=== PATIENT | female | born 1960 | race Caucasian/White ===

== ENCOUNTER → 2016-10-28 07:27 | Day surgery (SDC) | payer BC ==
[~2016-10-28 07:27] MED LIST: Acetaminophen TAB* 325 MG PO PRN; Buffered Lidocaine 1% SYRIN* 3 ML/SYR SYRINGE INTRADERM ONE; Bupivacaine 0.5% SDV PF* 30 ML VIAL ONE; Dexamethasone IV* 4 MG/ML 1 ML (4 MG) ONE; DiMENhydriNATE IV* 50 MG/ML VIAL IV PUSH PRN; Famotidine IV* 10 MG/ML 2 ML (20 mg) ONE; HYDROmorphone* 1 MG/ML 1 ML SYR IV PRN; Ketorolac INJ* 30 MG/ML 1 ML VIAL ONE; Midazolam* 1 MG/ML 2 ML VIAL (2 MG) ONE; Ondansetron INJ* 2 MG/ML VIAL IV PRN; PROCHLORPERAZINE INJ 5 MG/ML 2 ML VIAL IV PRN; ceFAZolin 2 GM PREMIX(*) 2 GM/50 ML BAG IVPB ONE; diPHENhydraMINE IV* 50 MG/ML 1 ml VIAL (BENADRYL) ONE; fentaNYL* 50 MCG/ML 2 ML VIAL (100 MCG VIAL) ONE; oxyCODONE TAB* 5 MG TAB PO PRN
[2016-10-28 13:01] VITALS: BP 115/82
--- NOTE | 2016-10-28 17:23 | RAD ---
CPT II Codes: 6045F INDICATION: Right foot fusion 0.3 seconds of fluoroscopy time was used. Fluoroscopic services provided for referring physician. 2 spot images demonstrates fusion of the first metatarsophalangeal joint. IMPRESSION: Fluoroscopic services provided for referring physician for right foot fusion.
--- NOTE | 2016-10-29 11:13 | OP ---
DATE OF OPERATION: 10/28/16 - [facility] DATE OF : 56 ATTENDING SURGEON: Soren Oates MD [employer] WORKER: Carito Roberts PA-C ANESTHESIOLOGIST: Dr. Martinez ANESTHESA: Nerve block PRE-OP DIAGNOSIS: Forefoot clawing with claw toe of the hallux and hammertoes 2 , 3 and 4. POST-OP DIAGNOSIS: Forefoot clawing with claw toe of the hallux and hammertoes 2, 3 and 4. OPERATIVE PROCEDURE: First MTP joint fusion for hallux varus and then second, third and fourth PIP resection arthroplasties. DESCRIPTION OF PROCEDURE: The patient was taken to the operating room where we opened up through the previous dorsal medial incision directly down to the hallux joint. The threaded pin was removed from the proximal phalanx and then we prepared the joint for arthrodesis using a small power zuly. With the joint in neutral position, we drilled a oblique 4.0 mm cannulated screw across the MTP joint under compression. We then fashioned an F3 plate tip at the dorsal aspect of the first MTP joint with a combination of locking and nonlocking screws. We then sequentially made transverse elliptical incisions over the 2nd, 3rd and 4th hammertoes. Collateral ligaments were incised and then the condyles removed from each of the joints. We pinned each joint longitudinally and in neutral position with 0.062 C-wires. We then irrigated all wounds closing the medial wound with 2-0 Vicryl and 3-0 nylon, and the dorsal aspect of the second , third and fourth toes with interrupted 4-0 nylon sutures and a compression dressing applied. [id number]/[facility] #: [id number] [facility]PITALJazmyne
== END | disposition home or self-care (01) ==
LOC: OR 07:27
PROVIDERS: ATTEND Orthopaedic Surgery
DX: M20.31 Hallux varus (acquired), right foot (principal); M20.41 Other hammer toe(s) (acquired), right foot; Z88.2 Allergy status to sulfonamides; I10 Essential (primary) hypertension; K21.9 Gastro-esophageal reflux disease without esophagitis; F41.9 Anxiety disorder, unspecified; I49.3 Ventricular premature depolarization; I44.7 Left bundle-branch block, unspecified; M54.5 Low back pain; G89.29 Other chronic pain
CPT/HCPCS: 76000; C1713; C1776; J0690; J1100; J1200; J1885; J2250; J3010

== ENCOUNTER 2018-05-11 13:38 | Emergency (ER) | payer BC ==
--- OUTSIDE RECORDS SUMMARY | 2018-05-11 13:51 | XMS REPORT ---
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 Payers Type Date Identification Numbers Payment Provider Subscriber Commercial Policy Number: [id number] [facility] Ppo Sheree Wick PayID: [id number] [address] [address] [place] [address] Problems Date Description Provider Status Onset: 02/23/2013 Generalized anxiety disorder Karishma Acevedo PA Active Onset: 08/22/2011 Pain in thoracic spine Karishma Acevedo PA Active Onset: 08/22/2011 Insomnia Karishma Acevedo PA Active Onset: 08/22/2011 Benign essential hypertension Karishma Acevedo PA Active Onset: 05/30/2006 Bunion Lor Restrepo MD Active Onset: 05/30/2006 Low back pain Lor Restrepo MD Active Onset: 05/30/2006 Allergic rhinitis due to pollen Lor Restrepo MD Active Onset: 05/30/2006 Elevated blood-pressure reading Lor Restrepo MD Active without diagnosis of hypertension Onset: 05/30/2006 Osteochondropathy Lor Restrepo MD Active Onset: 12/09/2016 Gastroesophageal reflux disease Ilana Nassar NP Active Onset: 12/09/2016 Backache Ilana Nassar NP Active Onset: 12/09/2016 Mixed hyperlipidemia Ilana Nassar NP Active Onset: 12/09/2016 Body mass index 25-29 - overweight Ilana Nassar NP Active Onset: 12/09/2016 Allergic rhinitis Ilana Nassar NP Active Social History Type Date Description Comments Marital Status Single Lives With Daughter 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[employer], 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 Cigarette Use Never Smoked Cigarettes ETOH Use Occasionally consumes alcohol Smoking Patient has never smoked Allergies, Adverse Reactions, Alerts Date Description Reaction Status Severity Comments 09/26/2011 Michael-Synephrine active 02/28/2017 Sulfa Drugs rash active Medications Medication Date Status Form Strength Qnty SIG Indications Ordering Provider Hydrocodone-Ac Active Tablets 5-325mg 1 every 6 Unknown etaminophen 017 hours as needed Loratadine Active Tablets 10mg OTC 1 by J30.9 Digiovanna, 017 mouth Ilana, every day [employer] Magnesium Active Capsules 400mg 90caps 1 by R12 Digiovanning, 015 mouth Ilana, every [employer] other day K21.9 Omeprazole 05/31/[address] 20mg 90caps One Tablet R12 Digiovanna, By Mouth Ilana, [employer] Once Every Other Day K21.9 Ibuprofen 11/29/2013 Active Tablets 800mg 90tabs 1 by mouth M79.671 Digiovanna, three times Ilana, [employer] a day with food M54.89 Fluoxetine HCL 02/23/2013 Active Capsules 40mg 90caps take one F41.1 Digiovanna, capsule by Ilana, [employer] mouth every day Trazodone HCL 08/22/2011 Active Tablets 100mg 90tabs take one F41.1 Digiovanna, tablet by Ilana, [employer] mouth at bedtime Atenolol 07/23/2007 Active Tablets 50mg 180tabs take two I10 Digiovanna , tablets by Ilana, [employer] mouth every morning Cyclobenzaprine 10/17/2005 Active Tablets 10mg 50tabs Take One M54.89 Digiovanna, HCL Tablet By Ilana, [employer]CK[employer] Mouth Three Times A Day as Needed For Spasms Psyllium Active Powder 58.6% qd Unknown KP Aspirin Active Tablets 81mg [address] every day Fluconazole 12/16/2017 Hx Tablets 150mg 1tabs 1 by mouth Digiovanna, - one time JULIO Douglas 12/17/2017 Metronidazole 12/16/2017 Hx Gel 0.75% 70gm 1 Digiovanna, - applicator JULIO Douglas 12/21/2017 twice a day for 5 days Fluocinolone 10/30/2017 Hx Cream 0.01% 120gm apply 1-2 Digi[place]anna, Acetonide - gm to site JULIO Douglas 12/15/2017 as needed 1-2x/day Azithromycin 10/23/2017 Hx Tablets 250mg 6tabs 2 tablets R05 Fay, - by mouth on Mario DO 10/28/2017 day 1 then 1 tablet on days 2-5 Azithromycin 08/26/2017 Hx Tablets 250mg 6tabs 2 by mouth R05 Digiovanna, - on day 1 JULIO Douglas 08/31/2017 and 1 by mouth day 2-5 Meclizine HCL 03/13/2017 Hx Tablets 12.5m 30tabs 1 by mouth R42 Hepzibah , - g twice a day JD Grace 03/14/2017 Benzonatate 03/10/2017 Hx Capsules 200mg 30caps 1 by mouth R05 Digiovanna, - every 8 JULIO Douglas 03/20/2017 hours as needed for cough, may cause drowsiness Nitrofurantoin 02/28/2017 Hx Capsules 100mg 14caps 1 by mouth R30.0 Digiovanna, Monohyd Macro - twice a day JULIO Douglas 03/07/2017 for 7 days Azithromycin 02/07/2015 Hx Tablets 500mg 7tabs 1 by mouth 486 Fay, - every day Mario, DO 02/14/2015 [place] 50 12/17/2009 Hx Capsules 1000m 2 po qd Unknown - g 05/31/2015 Desloratadine Hx Tablets 5mg 1 tab po Unknown - daily prn 08/11/2014 nasal congestion Immunizations CPT Code Status Date Vaccine Reaction Lot # [id number] Given 05/22/2017 Afluria Or Fluvirin Flu Vac given at [facility] [place] ; Intramuscular corrected b/c box not checked for NYSIIS 42126 Given 05/15/2016 Influenza, Preservative Free 3 Years And Older 13233 Given 06/30/2013 Tdap (Adacel) Ages 7 And DONE AT [facility] Above Only [address] Given 05/16/2010 Influenza Intranasal Vaccine, Live Virus 60743 Given 07/11/2003 Tetanus And Diptheria Toxoids For Adult Use-preservative free Q2035 Refused 04/20/2018 Afluria Imunization WILL GET AT HOSP Vital Signs Date Vital Result Comment 04/20/2018 Weight 173.00 lb Heart Rate 72 /min BP Systolic 120 mmHg BP Diastolic 72 mmHg Respiratory Rate 18 /min Height 66.5 inches 5'6.50" BMI (Body Mass Index) 27.5 kg/m2 12/15/2017 Weight 169.44 lb With boot on LEFT lower leg Heart Rate 76 /min BP Systolic 116 mmHg BP Diastolic 74 mmHg Respiratory Rate 16 /min Height 66.5 inches 5'6.50" 12/15/17 MICHAEL MONTEIRO BMI (Body Mass Index) 26.9 kg/m2 10/23/2017 Body Temperature 99.2 F Weight 169.00 lb Heart Rate 88 /min BP Systolic 120 mmHg BP Diastolic 72 mmHg Respiratory Rate 18 /min Height 65 inches 5'5" O2 % BldC Oximetry 9697 % BMI (Body Mass Index) 28.1 kg/m2 08/26/2017 Body Temperature 98.5 F Weight 165.00 lb Heart Rate 74 /min BP Systolic 132 mmHg BP Diastolic 70 mmHg Respiratory Rate 16 /min Height 65 inches 5'5" O2 % BldC Oximetry 98 % on room air BMI (Body Mass Index) 27.5 kg/m2 06/13/2017 Weight 175.00 lb Heart Rate 84 /min BP Systolic 148 mmHg PT states she hasn't taken BP med today yet BP Diastolic 78 mmHg PT states she hasn't taken BP med today yet BP Systolic Recheck 136 mmHg BP Diastolic Recheck 78 mmHg Respiratory Rate 12 /min Height 65 inches 5'5" BMI (Body Mass Index) 29.1 kg/m2 04/21/2017 Body Temperature 96.8 F Weight 177.00 lb Heart Rate 72 /min BP Systolic 128 mmHg BP Diastolic 78 mmHg Respiratory Rate 16 /min Height 65 inches 5'5" BMI (Body Mass Index) 29.5 kg/m2 03/13/2017 Body Temperature 98.3 F Weight 169.00 lb Heart Rate 64 /min BP Systolic 148 mmHg BP Diastolic 80 mmHg BP Systolic Lying Down 142 mmHg BP Diastolic Lying Down 82 mmHg BP Systolic Sitting 144 mmHg BP Diastolic Sitting 84 mmHg BP Systolic Standing 142 mmHg BP Diastolic Standing 82 mmHg Respiratory Rate 18 /min Height 65 inches 5'5" O2 % BldC Oximetry 98 % BMI (Body Mass Index) 28.1 kg/m2 03/10/2017 Body Temperature 100.4 F Weight 174.00 lb Heart Rate 86 /min BP Systolic 140 mmHg BP Diastolic 84 mmHg Respiratory Rate 18 /min Height 65 inches 5'5" O2 % BldC Oximetry 97 % BMI (Body Mass Index) 29.0 kg/m2 02/28/2017 Weight 175.00 lb Heart Rate 78 /min BP Systolic 136 mmHg BP Diastolic 70 mmHg Respiratory Rate 16 /min Height 65 inches 5'5" BMI (Body Mass Index) 29.1 kg/m2 12/09/2016 Weight 174.00 lb Heart Rate 70 /min BP Systolic 120 mmHg BP Diastolic 70 mmHg Respiratory Rate 18 /min Height 65 inches 5'5" BMI (Body Mass Index) 29.0 kg/m2 05/31/2016 Weight 180.00 lb Heart Rate 68 /min BP Systolic 132 mmHg BP Diastolic 78 mmHg Respiratory Rate 18 /min Height 65 inches 5'5" BMI (Body Mass Index) 30.0 kg/m2 11/30/2015 Weight 183.00 lb Heart Rate 70 /min BP Systolic 128 mmHg BP Diastolic 74 mmHg BP Systolic Recheck 132 mmHg BP Diastolic Recheck 74 mmHg Respiratory Rate 18 /min Height 65 inches 5'5" BMI (Body Mass Index) 30.4 kg/m2 05/31/2015 Weight 180.00 lb Heart Rate 72 /min BP Systolic 130 mmHg BP Diastolic 80 mmHg Respiratory Rate 18 /min Height 65 inches 5'5" BMI (Body Mass Index) 30.0 kg/m2 02/07/2015 Body Temperature 101.3 F Weight 164.00 lb Heart Rate 88 /min BP Systolic 134 mmHg BP Diastolic 80 mmHg Respiratory Rate 18 /min Height 65.5 inches 5'5.50" O2 % BldC Oximetry 94 % BMI (Body Mass Index) 26.9 kg/m2 11/29/2014 Weight 168.00 lb Heart Rate 72 /min BP Systolic 124 mmHg BP Diastolic 74 mmHg BP Systolic Recheck 118 mmHg BP Diastolic Recheck 72 mmHg Respiratory Rate 18 /min Height 65.5 inches 5'5.50" BMI (Body Mass Index) 27.5 kg/m2 05/31/2014 Weight 169.00 lb Heart Rate 72 /min BP Systolic 110 mmHg BP Diastolic 72 mmHg Respiratory Rate 18 /min Height 65.5 inches 5'5.50" 11/29/2013 BP Systolic 108 mmHg BP Diastolic 68 mmHg 11/29/2013 Weight 166.00 lb Heart Rate 76 /min BP Systolic 140 mmHg BP Diastolic 86 mmHg Respiratory Rate 18 /min Height 65 inches 5'5" 08/23/2013 BP Systolic 128 mmHg BP Diastolic 80 mmHg 08/23/2013 Body Temperature 98.6 F Weight 163.00 lb Heart Rate 68 /min BP Systolic 144 mmHg BP Diastolic 82 mmHg Respiratory Rate 18 /min 07/26/2013 BP Systolic 140 mmHg BP Diastolic 78 mmHg 07/26/2013 Weight 162.00 lb Up #7 Heart Rate 78 /min BP Systolic 138 mmHg BP Diastolic 74 mmHg Respiratory Rate 18 /min 03/29/2013 BP Systolic 132 mmHg BP Diastolic 70 mmHg 03/29/2013 Weight 155.00 lb Heart Rate 74 /min BP Systolic 146 mmHg BP Diastolic 84 mmHg Respiratory Rate 18 /min 02/23/2013 BP Systolic 112 mmHg BP Diastolic 70 mmHg 02/23/2013 Weight 155.00 lb Heart Rate 74 /min BP Systolic 134 mmHg BP Diastolic 74 mmHg Respiratory Rate 18 /min 11/25/2012 Body Temperature 100.2 F Weight 152.00 lb Heart Rate 76 /min BP Systolic 130 mmHg BP Diastolic 70 mmHg Respiratory Rate 18 /min O2 % BldC Oximetry 98 % 09/21/2012 Weight 153.00 lb Heart Rate 74 /min BP Systolic 130 mmHg BP Diastolic 80 mmHg Respiratory Rate 18 /min 08/26/2012 BP Systolic 128 mmHg BP Diastolic 80 mmHg 08/26/2012 Body Temperature 98.9 F Weight 151.00 lb Heart Rate 72 /min BP Systolic 134 mmHg BP Diastolic 84 mmHg Respiratory Rate 18 /min Height 65 inches 5'5" 05/22/2012 Body Temperature 97.6 F Weight 152.00 lb Heart Rate 76 /min BP Systolic 132 mmHg BP Diastolic 88 mmHg Respiratory Rate 18 /min Height 65 inches 5'5" 04/06/2012 Body Temperature 99.0 F Weight 152.00 lb Heart Rate 76 /min BP Systolic 134 mmHg BP Diastolic 80 mmHg Respiratory Rate 18 /min Height 65 inches 5'5" O2 % BldC Oximetry 98 % 03/16/2012 BP Systolic 122 mmHg Sitting Up L Arm BP Diastolic 82 mmHg Sitting Up L Arm 03/16/2012 Body Temperature 98.2 F Weight 150.00 lb Heart Rate 72 /min BP Systolic 132 mmHg Lying- L Arm, 122/82 Standing In L Arm BP Diastolic 78 mmHg Lying- L Arm, 122/82 Standing In L Arm Respiratory Rate 16 /min 02/26/2012 Body Temperature 99.7 F Weight 147.00 lb Heart Rate 76 /min BP Systolic 134 mmHg BP Diastolic 78 mmHg Respiratory Rate 18 /min Height 65 inches 5'5" 02/20/12 02/20/2012 Body Temperature 98.5 F Weight 150.00 lb Heart Rate 82 /min BP Systolic 128 mmHg BP Diastolic 80 mmHg Respiratory Rate 18 /min Height 65 inches 02/20/12 09/26/2011 Body Temperature 98.8 F Weight 143.00 lb Heart Rate 74 /min BP Systolic 120 mmHg BP Diastolic 70 mmHg Respiratory Rate 20 /min Height 65 inches 5'5" 11/19/10 08/22/2011 Weight 145.00 lb Heart Rate 74 /min BP Systolic 130 mmHg BP Diastolic 70 mmHg Respiratory Rate 18 /min Height 65 inches 5'5" 11/19/10 02/18/2011 Weight 144.00 lb Heart Rate 80 /min BP Systolic 112 mmHg l arm BP Diastolic 70 mmHg l arm Respiratory Rate 16 /min Height 65 inches 5'5" 11/19/10 02/13/2011 Body Temperature 98.3 F Weight 143.00 lb Heart Rate 82 /min BP Systolic 112 mmHg l arm BP Diastolic 68 mmHg l arm Respiratory Rate 20 /min Height 65 inches 5'5" 11/19/10 O2 % BldC Oximetry 97 % Ra 12/17/2010 Weight 140.00 lb Heart Rate 68 /min BP Systolic 132 mmHg l arm BP Diastolic 62 mmHg l arm Respiratory Rate 18 /min Height 65 inches 5'5" 11/19/10 11/19/2010 Weight 137.00 lb Heart Rate 76 /min BP Systolic 112 mmHg l arm BP Diastolic 62 mmHg l arm Respiratory Rate 18 /min Height 65 inches 5'5" 10/17/2010 Weight 138.00 lb Heart Rate 72 /min BP Systolic 138 mmHg l arm BP Diastolic 86 mmHg l arm Respiratory Rate 18 /min 05/22/2010 Body Temperature 99.5 F Weight 140.00 lb Heart Rate 68 /min BP Systolic 130 mmHg BP Diastolic 84 mmHg 04/19/2010 BP Systolic 122 mmHg BP Diastolic 78 mmHg 04/19/2010 Weight 141.00 lb Heart Rate 64 /min BP Systolic 124 mmHg l arm BP Diastolic 94 mmHg l arm Respiratory Rate 18 /min Height 65.75 inches 5'5.75" 03/20/2010 Weight 141.00 lb Heart Rate 88 /min BP Systolic 124 mmHg l arm BP Diastolic 90 mmHg l arm Respiratory Rate 18 /min 01/19/2010 Body Temperature 101.5 F Weight 149.00 lb Heart Rate 76 /min BP Systolic 124 mmHg l arm BP Diastolic 78 mmHg l arm Respiratory Rate 18 /min 10/12/2009 BP Systolic 118 mmHg BP Diastolic 78 mmHg 10/12/2009 Weight 141.00 lb Heart Rate 79 /min BP Systolic 134 mmHg BP Diastolic 82 mmHg Respiratory Rate 16 /min 07/12/2009 Body Temperature 99.7 F Weight 146.00 lb Heart Rate 101 /min BP Systolic 150 mmHg BP Diastolic 86 mmHg Respiratory Rate 14 /min O2 % BldC Oximetry 99 % 04/07/2009 BP Systolic 126 mmHg BP Diastolic 78 mmHg 04/07/2009 Weight 151.00 lb Heart Rate 71 /min BP Systolic 140 mmHg BP Diastolic 90 mmHg Respiratory Rate 15 /min 03/21/2009 Body Temperature 98.9 F Weight 149.00 lb Heart Rate 76 /min BP Systolic 130 mmHg BP Diastolic 74 mmHg Respiratory Rate 15 /min 10/07/2008 BP Systolic 136 mmHg BP Diastolic 82 mmHg 10/07/2008 Weight 164.00 lb Heart Rate 74 /min BP Systolic 164 mmHg BP Diastolic 98 mmHg Respiratory Rate 14 /min 07/04/2008 Body Temperature 99.1 F Heart Rate 99 /min BP Systolic 130 mmHg BP Diastolic 80 mmHg Respiratory Rate 16 /min Height 66 inches 5'6" O2 % BldC Oximetry 99 % 04/06/2008 Weight 164.00 lb Heart Rate 80 /min BP Systolic 126 mmHg BP Diastolic 90 mmHg Respiratory Rate 17 /min Height 66 inches 5'6" 01/05/2008 Body Temperature 98.3 F Weight 163.00 lb Heart Rate 76 /min BP Systolic 134 mmHg BP Diastolic 72 mmHg Respiratory Rate 18 /min Height 66 inches 5'6" O2 % BldC Oximetry 99 % 12/24/2007 Weight 160.00 lb Heart Rate 80 /min BP Systolic 140 mmHg BP Diastolic 80 mmHg Respiratory Rate 16 /min Height 66 inches 5'6" 08/24/2007 BP Systolic 136 mmHg BP Diastolic 84 mmHg 08/24/2007 Weight 164.00 lb Heart Rate 67 /min BP Systolic 144 mmHg BP Diastolic 88 mmHg Respiratory Rate 17 /min Height 66 inches 5'6" 07/23/2007 Weight 164.00 lb Heart Rate 77 /min BP Systolic 140 mmHg BP Diastolic 80 mmHg Respiratory Rate 18 /min Height 66 inches 5'6" 05/01/2007 Body Temperature 99.4 F Weight 156.00 lb Heart Rate 87 /min BP Systolic 154 mmHg BP Diastolic 90 mmHg Respiratory Rate 18 /min Height 66 inches 5'6" O2 % BldC Oximetry 99 % 03/23/2007 Weight 156.00 lb Heart Rate 78 /min BP Systolic 120 mmHg BP Diastolic 80 mmHg Respiratory Rate 18 /min Height 66 inches 5'6" 02/12/2007 BP Systolic 158 mmHg BP Diastolic 94 mmHg 02/12/2007 Weight 153.00 lb Heart Rate 88 /min BP Systolic 160 mmHg BP Diastolic 100 mmHg Respiratory Rate 20 /min Height 66 inches 5'6" 12/09/2006 Weight 154.00 lb Heart Rate 120 /min BP Systolic 142 mmHg BP Diastolic 98 mmHg Respiratory Rate 17 /min Height 66 inches 5'6" 11/12/2006 BP Systolic 142 mmHg BP Diastolic 66 mmHg 11/12/2006 Weight 153.00 lb Heart Rate 126 /min BP Systolic 160 mmHg BP Diastolic 90 mmHg Respiratory Rate 19 /min Height 66 inches 5'6" 05/30/2006 Weight 153.19 lb Heart Rate 74 /min BP Systolic 140 mmHg BP Diastolic 60 mmHg Respiratory Rate 16 /min Height 66 inches 5'6" 03/19/2006 BP Systolic 126 mmHg BP Diastolic 82 mmHg 03/19/2006 Weight 147.00 lb Heart Rate 100 /min BP Systolic 140 mmHg BP Diastolic 90 mmHg Respiratory Rate 17 /min Height 66 inches 5'6" 01/13/2006 Weight 143.00 lb Heart Rate 78 /min BP Systolic 120 mmHg BP Diastolic 90 mmHg Respiratory Rate 16 /min Height 66 inches 5'6" 10/17/2005 BP Systolic 146 mmHg BP Diastolic 96 mmHg 10/17/2005 Weight 148.00 lb Heart Rate 72 /min BP Systolic 148 mmHg BP Diastolic 96 mmHg Respiratory Rate 15 /min Height 66 inches 5'6" 08/20/2005 Body Temperature 99.2 F Weight 144.00 lb Heart Rate 113 /min BP Systolic 140 mmHg BP Diastolic 90 mmHg Respiratory Rate 16 /min O2 % BldC Oximetry 99 % Results Test Date Test Result H/L Range Note Laboratory test 12/15/2017 TSH 3.68 uIU/mL 0.35-4.94 finding Laboratory test 12/15/2017 Urine Culture Microbiology res 1 finding <SEE NOTE> Affirm 12/15/2017 Trichomonas Negative Negative Vaginalis Gardnerella Vaginalis Positive Negative Tila Species Positive Negative Basic (BMP) 12/03/2017 Sodium 143 mmol/L 135-146 2 Potassium 4.1 mmol/L 3.5-5.2 Chloride# 102 mmol/L 97-110 3 Carbon Dioxide 31 mmol/L 24-34 Glucose 85 mg/dL 70-105 BUN 15 mg/dL 6-26 Creatinine 0.8 mg/dL 0.5-1.4 Calcium 10.5 mg/dL High 8.5-10.2 Non Stefania Egfr >60 >60 4 Stefania Egfr >60 >60 5 Anion Gap 10 mmol/L 5-15 6 Laboratory test finding 12/03/2017 TSH 7.34 uIU/mL High 0.35-4.94 Lipid Treatment 12/03/2017 Cholesterol 244 mg/dL High 50-199 Triglycerides 163 mg/dL 30-200 HDL 57 mg/dL 35-85 7 Chol/ HDL Ratio 4.3 ratio 3.7-5.6 VLDL 33 mg/dL High 2-29 LDL (Calc) 155 mg/dL High 20-99 8 Alt 16 U/L 3-42 Ast 20 U/L 8-42 Laboratory test finding 06/13/2017 TSH 3.20 uIU/mL 0.35-4.94 CBC With Auto Diff 05/29/2017 White Blood Count 5.4 K/uL 3.1-10.7 9 Red Blood Count 4.27 M/uL 3.90-5.40 9 Hemoglobin 12.7 gm/dL 11.6-15.8 9 Hematocrit 38.8 % 36.0-46.1 9 Mean Cell Volume 90.9 fl 80.9-99.0 9 Mean Corpuscular HGB 29.7 pg 25.9-32.7 9 Mean Corpuscular HGB Conc 32.7 g/dL 30.8-34.3 9 Platelet Count 266 K/uL 150-400 9 Red Cell Distri Width SD 43.4 fl 3-47 9 Red Cell Distri Width %CV 13.4 % 11.7-14.4 9 Mean Platelet Volume 10.4 fL 8.9-12.4 9 Neut% 62.8 % 40.4-72.8 9 Lymph % 26.5 % 20.0-42.0 9 [place] % 7.2 % 4.3-13.2 9 Eo% 2.9 % 0.0-6.6 9 Bas% 0.6 % 0.0-1.1 9 Neut# 3.42 K/uL 1.8-7.0 9 Lymph # 1.44 K/uL 1.0-4.0 9 [place] # 0.39 K/uL 0.3-0.9 9 Eos # 0.16 K/uL 0.0-0.5 9 Baso # 0.03 K/uL 0.0-0.1 9 Laboratory test finding 05/29/2017 Magnesium 2.0 mg/dL 1.8-2.4 9 Thyroid Stim Hormone 4.85 uIU/mL High 0.30-4.20 9 Vitamin D,25-Hydroxy 33.3 ng/mL 30.0-100.0 9, 10 CMP, Comp Metabolic Panel 05/29/2017 Glucose 90 mg/dL 74-106 9 BUN 19 mg/dL High 7-18 9 Creatinine 1.0 mg/dL 0.6-1.3 9 Glom Filtration Rate, Estimate >60 mL/min >60 9 If >60 mL/min >60 9, 11 BUN/Creat 19.0 ratio 9 Sodium 140 mmol/L 136-145 9 Potassium 4.0 mmol/L 3.5-5.1 9 Chloride 105 mmol/L 98-107 9 Carbon Dioxide 30 mmol/L 21-32 9 Anion Gap 5 mEq/L Low 8-16 9 Calcium 9.3 mg/dL 8.5-10.1 9 Total Protein 7.2 g/dL 6.4-8.2 9 Albumin 3.7 g/dL 3.4-5.0 9 Globulin 3.5 g/dL 1.9-4.3 9 Alb/Glob 1.1 ratio 9 Bilirubin,Total 0.5 mg/dL 0.2-1.0 9 Sgot/Ast 13 U/L Low 15-37 9, 12 SGPT/Alt 18 U/L 12-78 9 Alkaline Phosphatase 99 U/L 45-117 9 Lipid Panel 05/29/2017 Cholesterol 221 mg/dL High <200 9, 13 Triglycerides 149 mg/dL <150 9, 14 HDL Cholesterol 55 mg/dL >40 9, 15 LDL-Cholesterol 136 mg/dL < 100 9, 16 Laboratory test 04/21/2017 Urine Culture Microbiology res <SEE 17 finding NOTE> Laboratory test 04/21/2017 CA 125 9.8 U/ml 0.0-35.0 18 finding Basic (BMP) 03/13/2017 Sodium 142 mmol/L 135-146 19 Potassium 4.0 mmol/L 3.5-5.2 Chloride# 104 mmol/L 97-110 20 Carbon Dioxide 27 mmol/L 24-34 Glucose 99 mg/dL 70-105 BUN 16 mg/dL 6-26 Creatinine 0.7 mg/dL 0.5-1.4 Calcium 9.8 mg/dL 8.5-10.2 Non Stefania Egfr >60 >60 21 Stefania Egfr >60 >60 22 Anion Gap 11 mmol/L 7-16 23 CBC With Auto Diff 03/13/2017 WBC 7.2 K/uL 4.1-11.0 RBC 4.17 M/uL 4.00-5.40 Hemoglobin 12.2 gm/dL 12.0-16.0 Hematocrit 36.9 % 36.0-47.0 MCV 88.4 fL 80.0-97.0 MCH 29.3 pg 27.0-32.0 MCHC 33.2 g/dL 32.0-36.0 RDW 13.6 % 11.5-14.5 PLT Count 294 K/ul 140-400 Neutrophil 59.2 % 35.0-75.0 Lymphocyte 30.9 % 16.0-52.0 Monocyte 5.5 % 2.0-10.0 Eosinophil 3.9 % 0.0-5.0 Basophil 0.5 % 0.0-4.0 Abs Neutrophils 4.3 K/uL 2.1-8.0 Abs Lymphocytes 2.2 K/uL 0.8-5.5 Abs Monocytes 0.4 K/uL 0.1-1.0 Abs Eosinophils 0.3 K/uL 0.0-0.5 Abs Basophils 0.0 K/uL 0.0-0.3 Laboratory test finding 03/07/2017 Lipase 185 U/L 73-393 24 Comprehensive Metabolic Panel 03/07/2017 Glucose 114 mg/dL High 74-106 24 BUN 10 mg/dL 7-18 24 Creatinine 0.9 mg/dL 0.6-1.3 24 Glom Filtration Rate, Estimate >60 mL/min >60 24 If >60 mL/min >60 24, 25 BUN/Creat 11.1 ratio 24 Sodium 143 mmol/L 136-145 24 Potassium 4.0 mmol/L 3.5-5.1 24 Chloride 105 mmol/L 98-107 24 Carbon Dioxide 30 mmol/L 21-32 24 Anion Gap 8 mEq/L 8-16 24 Calcium 9.2 mg/dL 8.5-10.1 24 Total Protein 7.7 g/dL 6.4-8.2 24 Albumin 3.8 g/dL 3.4-5.0 24 Globulin 3.9 g/dL 1.9-4.3 24 Alb/Glob 1.0 ratio 24 Bilirubin,Total 0.5 mg/dL 0.2-1.0 24 Sgot/Ast 19 U/L 15-37 24 SGPT/Alt 26 U/L 12-78 24 Alkaline Phosphatase 125 U/L High 45-117 24 CBS W/Automated Diff 03/07/2017 White Blood Count 6.2 K/uL 3.1-10.7 24 Red Blood Count 4.10 M/uL 3.90-5.40 24 Hemoglobin 12.5 gm/dL 11.6-15.8 24 Hematocrit 37.3 % 36.0-46.1 24 Mean Cell Volume 91.0 fl 80.9-99.0 24 Mean Corpuscular HGB 30.5 pg 25.9-32.7 24 Mean Corpuscular HGB Conc 33.5 g/dL 30.8-34.3 24 Platelet Count 196 K/uL 150-400 24 Red Cell Distri Width SD 42.9 fl 3-47 24 Red Cell Distri Width %CV 13.3 % 11.7-14.4 24 Mean Platelet Volume 10.6 fL 8.9-12.4 24 Neut% 84.6 % High 40.4-72.8 24 Lymph % 4.8 % Low 20.0-42.0 24 [place] % 7.4 % 4.3-13.2 24 Eo% 2.7 % 0.0-6.6 24 Bas% 0.5 % 0.0-1.1 24 Neut# 5.28 K/uL 1.8-7.0 24 Lymph # 0.30 K/uL Low 1.0-4.0 24 [place] # 0.46 K/uL 0.3-0.9 24 Eos # 0.17 K/uL 0.0-0.5 24 Baso # 0.03 K/uL 0.0-0.1 24 Ua RFX Micro & Culture II 03/07/2017 Urine Color YELLOW Yellow 24 Urine Clarity CLEAR Clear 24 Urine Glucose - Dipstick NEGATIVE mg/dL Negative 24 Urine Bilirubin - Dipstick NEGATIVE Negative 24 Urine Ketone NEGATIVE mg/dL Negative 24 Urine Specific Miranda <=1.005 Low 1.010-1.030 24 Urine Blood NEGATIVE Negative 24 Urine PH 7.0 6.5-7.5 24 Urine Protein - Dipstick NEGATIVE mg/dL Negative 24 Urine Urobilinogen - Dipstick 0.2 E.U./dL 0.2-1.0 24 Urine Nitrite - Dipstick NEGATIVE Negative 24 Urine Leuk Esterase NEGATIVE Negative 24 Source: URINE, CLEAN CAT <SEE NOTE> 24, 26 Laboratory test 02/28/2017 Urine Culture Microbiology res <SEE 27 finding NOTE> Laboratory test 12/09/2016 Pap Smear Thin SEE NOTE 28 finding Prep Laboratory test 12/09/2016 HPV Laboratory [place]ia <SEE 29 finding NOTE> Basic (BMP) 05/31/2016 Sodium 138 mmol/L 134-142 Potassium 3.7 mmol/L 3.5-5.2 Chloride 104 mmol/L 97-109 Carbon Dioxide 30 mmol/L 24-34 Glucose 97 mg/dL 70-105 BUN 14 mg/dL 6-26 Creatinine 0.8 mg/dL 0.5-1.4 Calcium 9.6 mg/dL 8.5-10.2 Anion Gap 8 mmol/L 6-14 Non Stefania Egfr >60 >60 30 Stefania Egfr >60 >60 31 Laboratory test finding 05/31/2016 Hepatitis C Virus NONREACTIVE Nonreactive Antibody Laboratory test finding 05/31/2016 Urine Culture RL SEE NOTE 32 Rout Urine W/ Micro -RL 05/31/2016 Color YELLOW Appearance CLEAR Spec Grav Urine 1.017 (1.003-1.030) PH Urine 5.5 (5.0-7.5) Leuk Esterase NEGATIVE (Neg) Nitrite Urine NEGATIVE (Neg) Protein Urine NEGATIVE (Neg) Glucose Urine NEGATIVE (Neg) Ketone Urine NEGATIVE (Neg) Urobilinogen 0.2 mg/dL (0-1.0) Bilirubin Urine NEGATIVE (Neg) Blood/HGB Urine NEGATIVE (Neg) Epithelial Cells NEGATIVE [HPF] (Neg) Hyaline Casts 0.0 [LPF] (0-5) Bacteria NEGATIVE [HPF] (Neg) Urine WBC 2.4 [HPF] (0-8) Urine RBC 0.5 [HPF] (0-3) 33 Estimated GFR 06/01/2015 Creatinine 0.8 mg/dL 0.6-1.3 Glom Filtration Rate, Estimate >60 mL/min >60 If >60 mL/min >60 34 Lipid Panel 06/01/2015 Cholesterol 200 mg/dL <200 35 Triglycerides 142 mg/dL <150 36 HDL Cholesterol 46 mg/dL >40 37 LDL-Cholesterol 126 mg/dL < 100 38 BMP (Basic) 06/01/2015 Glucose 94 mg/dL 74-106 BUN 17 mg/dL 7-18 Creatinine 0.8 mg/dL 0.6-1.3 Glom Filtration Rate, Estimate >60 mL/min >60 If >60 mL/min >60 39 BUN/Creat 21.2 ratio Sodium 142 mmol/L 136-145 Potassium 3.5 mmol/L 3.5-5.1 Chloride 104 mmol/L 98-107 Carbon Dioxide 35 mmol/L High 21-32 Anion Gap 3 mEq/L Low 8-16 Calcium 9.6 mg/dL 8.5-10.1 CBC With Auto Diff 06/01/2015 White Blood Count 5.1 K/uL 3.1-10.7 Red Blood Count 4.13 M/uL 3.90-5.40 Hemoglobin 12.6 gm/dL 11.6-15.8 Hematocrit 38.3 % 36.0-46.1 Mean Cell Volume 92.7 fl 80.9-99.0 Mean Corpuscular HGB 30.5 pg 25.9-32.7 Mean Corpuscular HGB Conc 32.9 g/dL 30.8-34.3 Platelet Count 259 K/uL 155-360 Red Cell Distri Width SD 44.1 fl 3-47 Red Cell Distri Width %CV 13.4 % 11.7-14.4 Mean Platelet Volume 11.2 fL 8.9-12.4 Neut% 53.8 % 40.4-72.8 Lymph % 33.1 % 17.0-46.1 [place] % 9.1 % 4.3-13.2 Eo% 3.6 % 0.0-6.6 Bas% 0.4 % 0.0-1.1 Neut# 2.73 K/uL 1.0-7.0 Lymph # 1.68 K/uL Low 1.8-7.0 [place] # 0.46 K/uL 0.3-0.9 Eos # 0.18 K/uL 0.0-0.5 Baso # 0.02 K/uL 0.0-0.1 Rout Urine W/ Micro -RL 05/31/2015 Color YELLOW Appearance CLOUDY Spec Grav Urine 1.028 (1.003-1.030) PH Urine 5.5 (5.0-7.5) Leuk Esterase 1+ (Neg) Nitrite Urine NEGATIVE (Neg) Protein Urine NEGATIVE (Neg) Glucose Urine NEGATIVE (Neg) Ketone Urine NEGATIVE (Neg) Urobilinogen 0.2 mg/dL (0-1.0) Bilirubin Urine NEGATIVE (Neg) Blood/HGB Urine NEGATIVE (Neg) Urine WBC * 6-10 [HPF] (0-5) Urine RBC * 3-5 [HPF] (0-2) Epithelial Cells 2+ [HPF] Bacteria 2+ [HPF] Mucus 1+ [HPF] 40 Laboratory test finding 11/29/2013 % Baso. 0.7 % 0.0-2.0 % Eos. 1.6 % 0.0-4.0 % Lymph 18 % Low 20-44 % [place] 5.6 % 2.0-10.0 % Cristian 74 % High 50-70 Absolute Baso. 0.1 K/ul 0.0-0.3 Absolute Eos. 0.1 K/ul 0.0-0.5 Absolute Lymph. 1.4 K/ul 0.8-4.8 Absolute [place]. 0.4 K/ul 0.1-1.0 Absolute Cristian. 5.55 K/ul 2.05-7.63 BUN 15.0 mg/dL 7.0-18.0 BUN/Creat Ratio 21.4 ratio High 12.0-20.0 Calcium 10.1 mg/dL 8.7-10.5 Chloride 102.0 mmol/L 98.0-107.0 Co2 31.0 mmol/L High 22.0-30.0 Creatinine-Serum 0.7 mg/dL 0.7-1.2 Glucose 71.0 mg/dL Low 75.0-110.0 HCT 37.9 % 37.0-51.0 HGB 12.5 Gm/dl 12.0-16.0 MCH 30.7 pg 26.0-32.0 MCHC 33.0 g/dL 31.0-36.0 MCV 93.0 Fl 80.0-97.0 MPV 7.9 fL 6.0-10.0 PLT 259 K/ul 140-440 Potasium 3.9 mmol/L 3.6-5.0 RBC 4.1 M/ul Low 4.2-6.3 RDW 12.1 % 11.5-14.5 Sodium 140.0 mmil/L 137.0-145.0 WBC 7.5 K/ul 4.1-10.9 eGFR 92.3 Laboratory test finding 08/23/2013 Tila species Positive High [Negative ] Culture Urine See Note 41 Gardnerella vaginalis Positive High [Negative] Trichomonas vaginalis Negative [Negative] Laboratory test finding 02/23/2013 % Baso. 0.9 % 0.0-2.0 % Eos. 1.0 % 0.0-4.0 % Lymph 23 % 20-44 % [place] 7.6 % 2.0-10.0 % Cristian 68 % 50-70 Absolute Baso. 0.1 K/ul 0.0-0.3 Absolute Eos. 0.1 K/ul 0.0-0.5 Absolute Lymph. 1.3 K/ul 0.8-4.8 Absolute [place]. 0.4 K/ul 0.1-1.0 Absolute Cristian. 3.98 K/ul 2.05-7.63 BUN 13.0 mg/dL 7.0-18.0 BUN/Creat Ratio 16.3 ratio 12.0-20.0 Calcium 10.1 mg/dL 8.7-10.5 Chloride 102.0 mmol/L 98.0-107.0 Co2 29.0 mmol/L 22.0-30.0 Creatinine-Serum 0.8 mg/dL 0.7-1.2 Glucose 88.0 mg/dL 75.0-110.0 HCT 37.5 % 37.0-51.0 HGB 12.4 Gm/dl 12.0-16.0 MCH 30.7 pg 26.0-32.0 MCHC 33.0 g/dL 31.0-36.0 MCV 93.0 Fl 80.0-97.0 MPV 9.0 fL 6.0-10.0 PLT 248 K/ul 140-440 [place] 3.7 mmol/L 3.6-5.0 RBC 4.0 M/ul Low 4.2-6.3 RDW 12.0 % 11.5-14.5 Sodium 142.0 mmil/L 137.0-145.0 TSH 3.05 uIU/ml 0.50-6.00 WBC 5.9 K/ul 4.1-10.9 eGFR 79.4 Laboratory test finding 11/26/2012 Tila Species See Note 42 Gardnerella Vaginalis See Note 43 Trichomonas Vaginalis See Note 44 Laboratory test finding 06/22/2012 Endometrial Curettage See Note 45 Laboratory test finding 05/22/2012 Tila Species See Note 46 Gardnerella Vaginalis See Note 47 Genital Culture See Note 48 Gram Stain See Note 49 Trichomonas Vaginalis See Note 50 Laboratory test finding 09/26/2011 A/G Ratio 1.4 1.0-2.2 Absolute Basophils 0.048 K/ul 0.0-0.3 Absolute Eosinophils 0.056 K/ul 0.0-0.5 Absolute Lymphocytes 1.78 K/ul 0.8-4.8 Absolute Monocytes 0.298 K/ul 0.1-1.0 Absolute Neutrophils 4.00 K/ul 2.05-7.63 Albumin 3.9 g/dL 3.5-5.0 Alkaline Phosphatase 54 U/L 30-126 Alt 22 U/L 9-52 Ast 23 U/L 14-36 BUN 16 mg/dL 7-18 BUN/CR Ratio 24.7 Ratio High 12-20 Basophil 0.8 % 0-2 Calcium 10.0 mg/dL 8.7-10.5 Carbon Dioxide 32 mmol/L High 22-30 Chloride 95 mmol/L Low 98-107 Creatinine, Serum 0.6 mg/dL Low 0.7-1.2 Eosinophil 0.9 % 0-4 Globulin 2.9 g/dL 2.7-4.3 Glucose 72 mg/dL 65-105 Hematocrit 39.3 % 37.0-51.0 Hemoglobin 12.5 GM/dl 12.0-16.0 Lymphocytes 28.8 % 20-44 MCH 29.6 pg 26.0-32.0 MCHC 31.9 g/dL 31.0-36.0 MCV 93 FL 80-97 Monocytes 4.8 % 2-10.0 Neutrophils 64.7 % 50-70 Platelet Count 263 K/ul 140-440 Potassium 4.6 mmol/L 3.6-5.0 RBC 4.23 M/ul 4.2-6.3 RDW 12.0 % 11.5-14.5 Sodium 138 mmol/L 137-145 Total Bilirubin 0.8 mg/dL 0.2-1.3 Total Protein 6.8 g/dL 6.3-8.2 WBC 6.2 K/ul 4.1-10.9 Laboratory test finding 08/22/2011 Anion Gap 13 mmol/L 10-20 BUN 22 mg/dL High 7-18 BUN/CR Ratio 31.5 Ratio High 12-20 Calcium 9.4 mg/dL 8.7-10.5 Carbon Dioxide 30 mmol/L 22-30 Chloride 98 mmol/L 98-107 Creatinine, Serum 0.7 mg/dL 0.7-1.2 Glucose 89 mg/dL 65-105 Potassium 3.9 mmol/L 3.6-5.0 Sodium 138 mmol/L 137-145 Laboratory test finding 08/22/2011 Tila Species See Note 51 Gardnerella Vaginalis See Note 52 Genital Culture See Note 53 Gram Stain See Note 54 Trichomonas Vaginalis See Note 55 Laboratory test finding 02/18/2011 Tila Species See Note 56 Gardnerella Vaginalis See Note 57 Genital Culture See Note 58 Gram Stain See Note 59 Trichomonas Vaginalis See Note 60 Laboratory test finding 12/17/2010 Tila Species See Note 61 Gardnerella Vaginalis See Note 62 Trichomonas Vaginalis See Note 63 Laboratory test finding 10/17/2010 Anion Gap 10 mEq/L 8-16 BUN 13 mg/dL 5-23 BUN/Creat 18.5 Bas% 0.4 % 0.0-1.1 Baso # 0.03 K/uL 0.0-0.1 Calcium 9.8 mg/dL 8.5-10.1 Carbon Dioxide 32 mEq/L 21-32 Chloride 101 mEq/L 98-107 Creatinine 0.7 mg/dL 0.5-1.4 Eo% 0.9 % 0.0-6.6 Eos # 0.06 K/uL 0.0-0.5 Estradiol,Serum < 20 pg/mL 64 FSH 111.5 mIU/mL 65 Glom Filtration Rate, Estimate >60 mL/min >60 Glucose 86 mg/dL 76-115 Hematocrit 36.6 % 36.0-46.1 Hemoglobin 11.7 gm/dL 11.6-15.8 If >60 mL/min >60 66 Luteinizing Hormone 50.9 mIU/mL 67 Lymph # 1.98 K/uL 0.8-3.4 Lymph % 28.8 % 17.0-46.1 Mean Cell Volume 93.4 fl 80.9-99.0 Mean Corpuscular HGB 29.8 pg 25.9-32.7 Mean Corpuscular HGB Conc 32.0 g/dL 30.8-34.3 Mean Platelet Volume 12.3 fL 8.9-12.4 [place] # 0.43 K/uL 0.3-0.9 [place] % 6.3 % 4.3-13.2 Neut# 4.37 K/uL 1.0-7.0 Neut% 63.6 % 40.4-72.8 Platelet Count 238 K/uL 155-360 Potassium 4.2 mEq/L 3.5-5.1 Red Blood Count 3.92 M/uL 3.90-5.40 Red Cell Distri Width %CV 12.7 % 11.7-14.4 Red Cell Distri Width SD 41.9 fl 3-47 Sodium 139 mEq/L 136-145 Thyroid Stim Hormone 4.40 uIU/mL 0.49-4.67 68 White Blood Count 6.9 K/uL 3.1-10.7 Laboratory test finding 05/22/2010 Culture Urine See Note 69 Laboratory test finding 04/19/2010 Tila Species See Note 70 Cytology Pap See Note 71 Gardnerella Vaginalis See Note 72 Trichomonas Vaginalis See Note 73 Laboratory test finding 03/20/2010 Tila Species See Note 74 Culture Urine See Note 75 Gardnerella Vaginalis See Note 76 Trichomonas Vaginalis See Note 77 Laboratory test finding 10/12/2009 Anion Gap 13 mmol/L 10-20 78 BUN 16 mg/dL 7-18 78 BUN/CR Ratio 24.7 Ratio High 12-20 78 Calcium 9.5 mg/dL 8.7-10.5 78 Carbon Dioxide 32 mmol/L High 22-30 78 Chloride 98 mmol/L 98-107 78 Creatinine, Serum 0.6 mg/dL Low 0.7-1.2 78 Glucose 95 mg/dL 65-105 78 Potassium 4.1 mmol/L 3.6-5.0 78 Sodium 139 mmol/L 137-145 78 Laboratory test finding 04/07/2009 Cytology Pap See Note 79 LDL Cholesterol Profile 07/08/2008 Cholesterol 141 mg/dL 120-200 HDL Cholesterol 40 mg/dL 32-96 LDL-Cholesterol 85 mg/dL 62-185 Triglycerides 79 mg/dL 0-210 Laboratory test finding 07/08/2008 Anion Gap 8 mEq/L 8-16 BUN 17 mg/dL 5-23 BUN/Creat 28.3 Calcium 8.6 mg/dL 8.5-10.1 Carbon Dioxide 29 mEq/L 21-32 Chloride 105 mEq/L 98-107 Creatinine 0.6 mg/dL 0.5-1.4 Glom Filtration Rate, Estimate >60 mL/min >60 Glucose 96 mg/dL 76-115 If >60 mL/min >60 80 Potassium 3.9 mEq/L 3.5-5.1 Sodium 138 mEq/L 136-145 Laboratory test finding 06/27/2008 Anion Gap 12 mEq/L 8-16 81 BUN 8 mg/dL 5-23 81 BUN/Creat 16.0 81 Band% 4 % 0-8 81 CBS W/Automated Diff Canceled By Lab 81, 82 CK 144 U/L 26-190 81 Calcium 9.0 mg/dL 8.5-10.1 81 Carbon Dioxide 29 mEq/L 21-32 81 Chloride 103 mEq/L 98-107 81 Creatinine 0.5 mg/dL 0.5-1.4 81 Eosinophil% 1 % 0-5 81 Glom Filtration Rate, Estimate >60 mL/min >60 81 Glucose 113 mg/dL 76-115 81 Hematocrit 37.0 % 36.0-46.1 81 Hemoglobin 12.4 gm/dL 11.6-15.8 81 If >60 mL/min >60 81, 83 Lymph% 8 % Low 17-56 81 Mean Cell Volume 91.1 fl 80.9-99.0 81 Mean Corpuscular HGB 30.5 pg 25.9-32.7 81 Mean Corpuscular HGB Conc 33.5 g/dL 30.8-34.3 81 Mean Platelet Volume 10.9 fL 8.9-12.4 81 Monocyte% 1 % 0-10 81 Neutrophils% 86 % High 33-73 81 Platelet Count 281 K/uL 155-360 81 Platelet Estimate Normal 81 Potassium 3.6 mEq/L 3.5-5.1 81 RBC Morphology Normal 81 Red Blood Count 4.06 M/uL 3.90-5.40 81 Red Cell Distri Width %CV 12.7 % 11.7-14.4 81 Sodium 140 mEq/L 136-145 81 Total Cells Counted 100 #CELLS 81 Troponin-I 2.2 ng/mL High 0.0-0.6 81, 84 White Blood Count 11.6 K/uL High 3.1-10.7 81 Laboratory test 06/27/2008 Troponin-I 8.6 ng/mL High 0.0-0.6 85, 86 finding Laboratory test 04/06/2008 Cytology Pap See Note 87 finding Laboratory test 12/24/2007 Culture Throat Normal Throat FL 88 finding <See Note> Laboratory test 12/24/2007 Rapid Strep Test Negative finding Laboratory test 03/24/2007 Cytology Pap See Note 89 finding GC / Chlamydia See Note 90 Laboratory test finding 02/12/2007 Culture Urine <see comment> 91 Laboratory test finding 11/12/2006 Culture Urine <see comment> 92 Laboratory test finding 01/13/2006 Cytology Pap See Note 93 Laboratory test finding 01/13/2006 Absolute Basophils 0.0 K/ul 0.0-0.3 94 Absolute Eosinophils 0.1 K/ul 0.0-0.5 94 Absolute Lymphocytes 1.5 K/ul 0.8-4.8 94 Absolute Monocytes 0.3 K/ul 0.1-1.0 94 Absolute Neutrophils 3.7 K/ul 2.05-7.63 94 Anion Gap 11 mmol/L 10-20 94 BUN 18 mg/dL 7-18 94 BUN/CR Ratio 26.7 Ratio High 12-20 94 Basophil 0.3 % 0-2 94 Calcium 9.1 mg/dL 8.7-10.5 94 Carbon Dioxide 29 mmol/L 22-30 94 Chloride 106 mmol/L 98-107 94 Creatinine, Serum 0.7 mg/dL 0.7-1.2 94 Eosinophil 2.3 % 0-4 94 Glucose 87 mg/dL 65-105 94 Hematocrit 38.1 % 37.0-51.0 94 Hemoglobin 13.2 GM/dl 12.0-16.0 94 Lymphocytes 26.7 % 20-44 94 MCH 30.9 pg 26.0-32.0 94 MCHC 34.7 g/dL 31.0-36.0 94 MCV 89 FL 80-97 94 Monocytes 5.0 % 2-10.0 94 Neutrophils 65.7 % 50-70 94 Platelet Count 261 K/ul 140-440 94 Potassium 3.8 mmol/L 3.6-5.0 94 RBC 4.28 M/ul 4.2-6.3 94 RDW 12.3 % 11.5-14.5 94 Sodium 142 mmol/L 137-145 94 WBC 5.6 K/ul 4.1-10.9 94 Lipid Panel 01/13/2006 Chol/HDL Ratio 3.17 94, 95 Cholesterol 182 mg/dL 50-199 94 HDL Cholesterol 57 mg/dL 29-86 94 LDL 112 mg/dL 20-129 94 Triglycerides 61 mg/dL 30-249 94 VLDL Cholesterol 12 mg/dL 94 1 Microbiology results SOURCE Clean Catch Midstream FINAL RESULT No growth 2 Updated reference range on new analyzer 3 Updated reference range on new analyzer 4 Concerning GFR Guidelines: Normal function or mild renal disease, if clinically at risk: >/=60 mL/min Moderately decreased: 30-59 Severely decreased: 15-29 Renal failure: <15 Glomerular Filtration Rate (GFR) is estimated based on the MDRD equation, which assumes a steady state for creatinine as recommended by the National Kidney Disease Education Program in conjunction with the National Institutes of Health and the National Kidney Foundation. Clinical conditions in which it may be necessary to measure GFR by using clearance methods include extremes of age and body size, severe malnutrition or obesity, diseases of skeletal muscle, paraplegia or quadriplegia, vegetarian diet, rapidly changing kidney function, and calculation of the dose of potentially toxic drugs that are excreted by the kidneys. 5 Concerning GFR Guidelines for Americans: Normal function or mild renal disease, if clinically at risk: >/=60 mL/min Moderately decreased: 30-59 Severely decreased: 15-29 Renal failure: <15 6 Updated Reference Range 7 Per NCEP ATP III Guidelines: Results lower than 40 mg/dL are suggestive of increased risk for coronary artery disease. Results > or=to 60 mg/dL are considered a negative risk factor. 8 Per NCEP ATP III Guidelines: Normal Population <130 Patients with medical conditions: CHD/DM Optimal: <100 Borderline high: 130-159 High: 160-189 Very high: >189 9 K21.9,F41.1,E78.2,I10 5.4% 10 yr risk 10 Vitamin D deficiency has been defined by the [place] [employer] and an Endocrine Society practice guideline as a level of serum 25-OH vitamin D less than 20 ng/mL (1,2). The Endocrine Society went on to further define vitamin D insufficiency as a level between 21 and 29 ng/mL (2). 1. IOM ([place] [employer]). 2010. Dietary reference intakes for calcium and D. [place]: The National Academies Press. 2. Ary MF, Tho OLVERA, Juan BROOKE, et al. Evaluation, treatment, and prevention of vitamin D deficiency: an Endocrine Society clinical practice guideline. JCEM. 2010; 96(7):1911-30. Performed at: RN - [facility] [address] [id number] Car Rider: Mehreen Jalloh MD, Phone: [phone] 11 Note: Persistent reduction for 3 months or more in an eGFR <60 mL/min/1.73 m2 defines CKD. Patients with eGFR values >/=60 mL/min/1.73 m2 may also have CKD if evidence of persistent proteinuria is present. The original MDRD equation for estimated GFR is not valid for patients less than 18 years of age. Additional information may be found at www.kdoqi.org. 12 Values below the stated reference ranges of AST and ALT can be seen in normal populations. Clinical correlation is suggested. 13 Reference Guidelines*: Desirable: ........... < 200 mg/dL Borderline High: ..... 200-239 mg/dL High: ................ >=240 mg/dL * The National Cholesterol Education Program (NCEP) 14 Reference Guidelines*: Normal: ............. < 150 mg/dL Borderline High: .... 150-199 mg/dL High: ............... 200-499 mg/dL Very High: .......... > 500 mg/dL * Source: National Cholesterol Education Program (NCEP) 15 Reference Guidelines*: Low HDL: ..... < 40 mg/dL Normal: ..... 40-60 mg/dL Desirable: ... > 60 mg/dL *The National Cholesterol Education Program(NCEP) 16 Reference Guidelines*: Optimal:........... <100 mg/dL Near Optimal....... 100-129 mg/dL Borderline High.... 130-159 mg/dL High............... 160-189 mg/dL Very High.......... >=190 mg/dL * Source: National Cholesterol Education Program (NCEP) 17 Microbiology results SOURCE Clean Catch Midstream FINAL RESULT <10,000 CFU/ML Urogenital zofia consistent with contamination. Request fresh specimen if indicated. 18 Beginning 10/06/06 CA125 values assayed at [facility] laboratories uses an EIA methodology manufactured by [employer] for use on the DXI analyzer. Values obtained with different assay methods or kits can not be used interchangeably. Serum CA125 measurement is not an absolute test for malignancy. The CA125 value should be used in conjunction with information available from clinical evaluation and other diagnostic procedures. 19 Updated reference range on new analyzer 20 Updated reference range on new analyzer 21 Concerning GFR Guidelines: Normal function or mild renal disease, if clinically at risk: >/=60 mL/min Moderately decreased: 30-59 Severely decreased: 15-29 Renal failure: <15 Glomerular Filtration Rate (GFR) is estimated based on the MDRD equation, which assumes a steady state for creatinine as recommended by the National Kidney Disease Education Program in conjunction with the National Institutes of Health and the National Kidney Foundation. Clinical conditions in which it may be necessary to measure GFR by using clearance methods include extremes of age and body size, severe malnutrition or obesity, diseases of skeletal muscle, paraplegia or quadriplegia, vegetarian diet, rapidly changing kidney function, and calculation of the dose of potentially toxic drugs that are excreted by the kidneys. 22 Concerning GFR Guidelines for Americans: Normal function or mild renal disease, if clinically at risk: >/=60 mL/min Moderately decreased: 30-59 Severely decreased: 15-29 Renal failure: <15 23 Updated reference range on new analyzer 24 FEVER, CHILLS, LOW ABD PAIN 25 Note: Persistent reduction for 3 months or more in an eGFR <60 mL/min/1.73 m2 defines CKD. Patients with eGFR values >/=60 mL/min/1.73 m2 may also have CKD if evidence of persistent proteinuria is present. The original MDRD equation for estimated GFR is not valid for patients less than 18 years of age. Additional information may be found at www.kdoqi.org. 26 URINE, CLEAN CATCH 27 Microbiology results SOURCE Clean Catch Midstream COLONY COUNT 50,000 PRELIMINARY RESULT Gram Negative [place]. ID & Sensitivity to Follow. FINAL RESULT Escherichia coli (Isolate 1) Sensitivity Analysis Isolate 1 --------- AMIKACIN <=16 S AMPICILLIN <=8 S AMPICILLIN/SULBACTAM <=8/4 S AZTREONAM <=4 S CEFAZOLIN <=2 S CEFEPIME <=8 S CEFTAZIDIME <=1 S CEFTRIAXONE <=1 S CIPROFLOXACIN <=1 S ERTAPENEM <=0.5 S GENTAMYCIN <=2 S IMIPENEM <=1 S LEVOFLOXACIN <=2 S NITROFURANTOIN <=32 S PIPERACILLIN/TAZOBACTAM <=16 S TETRACYCLINE <=4 S TOBRAMYCIN <=4 S TRIMETHOPRIM/SULFAMETHOXAZ <=2/38 S S=Sensitive;I=Indeterminate;R=Resistant 28 [facility]. [address] [place] [address] CYTOLOGY REPORT Source of Specimen(s): Thin Prep Endocervical Pap Smear - One Vial Date of Last Menstrual Period: 11/20 Menstrual History: Post-menopausal Other Clinical Conditions: Last Pap Smear: 2009 normal HPV ASSAY REQUESTED Specimen Adequacy SATISFACTORY FOR EVALUATION PRESENCE OF ENDOCERVICAL/TRANSFORMATION ZONE COMPONENT General Categorization NEGATIVE FOR INTRAEPITHELIAL LESION OR MALIGNANCY Interpretation NEGATIVE FOR INTRAEPITHELIAL LESION OR MALIGNANCY Comment HPV testing will be performed and a separate report will be issued. Reported: 12/11/2016 07:26 Electronically Signed Out By Monserrat SARAVIA rzd ICD9 Code: Z01.419 Unless otherwise specified, testing performed by [facility] [address] [place] [id number] 29 [facility] [place] [address] [address] Amplified Molecular High Risk HPV Test Patient Name:SHEREE WICK Patient :1960 Ordering Physician:ILANA NASSAR BUCKLE [employer]AP PUNCHER Accession Number [id number] Specimen(s) Received A: High Risk HPV Thin Prep Endocervical Pap Smear - One Vial Other Case Numbers: [id number] Diagnosis RISK GROUPS RESULTS High Risk NEGATIVE Tested for HPV Types (16, 18, 31, 33, 35, 39, 45, 51, 52, 56, 58, 59, 66, 68) Reported: 12/12/2016 10:24 Electronically Signed Out By Elissa Ansari [facility] Stacey Bullard 30 Concerning GFR Guidelines: Normal function or mild renal disease, if clinically at risk: >/=60 mL/min Moderately decreased: 30-59 Severely decreased: 15-29 Renal failure: <15 Glomerular Filtration Rate (GFR) is estimated based on the MDRD equation, which assumes a steady state for creatinine as recommended by the National Kidney Disease Education Program in conjunction with the National Institutes of Health and the National Kidney Foundation. Clinical conditions in which it may be necessary to measure GFR by using clearance methods include extremes of age and body size, severe malnutrition or obesity, diseases of skeletal muscle, paraplegia or quadriplegia, vegetarian diet, rapidly changing kidney function, and calculation of the dose of potentially toxic drugs that are excreted by the kidneys. 31 Concerning GFR Guidelines for Americans: Normal function or mild renal disease, if clinically at risk: >/=60 mL/min Moderately decreased: 30-59 Severely decreased: 15-29 Renal failure: <15 32 SPECIMEN DESCRIPTION URINE, COLLECTION METHOD NOT SPECIFIED CULTURE RESULTS NO GROWTH REPORT STATUS FINAL 2016 Unless otherwise specified, testing performed by [facility] [address] [place] [id number] 33 Unless otherwise specified, testing performed by [facility] [address] [place] [id number] 34 Note: Persistent reduction for 3 months or more in an eGFR <60 mL/min/1.73 m2 defines CKD. Patients with eGFR values >/=60 mL/min/1.73 m2 may also have CKD if evidence of persistent proteinuria is present. The original MDRD equation for estimated GFR is not valid for patients less than 18 years of age. Additional information may be found at www.kdoqi.org. 35 Reference Guidelines*: Desirable: ........... < 200 mg/dL Borderline High: ..... 200-239 mg/dL High: ................ >=240 mg/dL * The National Cholesterol Education Program (NCEP) 36 Reference Guidelines*: Normal: ............. < 150 mg/dL Borderline High: .... 150-199 mg/dL High: ............... 200-499 mg/dL Very High: .......... > 500 mg/dL * Source: National Cholesterol Education Program (NCEP) 37 Reference Guidelines*: Low HDL: ..... < 40 mg/dL Normal: ..... 40-60 mg/dL Desirable: ... > 60 mg/dL *The National Cholesterol Education Program(NCEP) 38 Reference Guidelines*: Optimal:........... <100 mg/dL Near Optimal....... 100-129 mg/dL Borderline High.... 130-159 mg/dL High............... 160-189 mg/dL Very High.......... >=190 mg/dL * Source: National Cholesterol Education Program (NCEP) 39 Note: Persistent reduction for 3 months or more in an eGFR <60 mL/min/1.73 m2 defines CKD. Patients with eGFR values >/=60 mL/min/1.73 m2 may also have CKD if evidence of persistent proteinuria is present. The original MDRD equation for estimated GFR is not valid for patients less than 18 years of age. Additional information may be found at www.[email or web address]. 40 Unless otherwise specified, testing performed by [facility] [address] [place] [address] 41 COLONY COUNT ! 30,000-40,000 CFU/ml Organism 1 ! URETHRAL ZOFIA 42 POSITIVE FOR TILA SPECIES Testing Performed by: [facility] [place] [address] 43 POSITIVE FOR GARDNERELLA VAGINALIS 44 NEGATIVE FOR TRICHOMONAS VAGINALIS 45 OPERATION/PROCEDURE Hysteroscopy, D+C, endometrial oblation with Novasure DIAGNOSIS: "ENDOMETRIAL CURETTINGS": DISORDERED PROLIFERATIVE ENDOMETRIUM. ADRIANNA/abhijit GROSS "ENDOMETRIAL CURETTINGS" . The specimen is received in an appropriately labeled container. This contains 1.2 mL of pink tissue admixed with mucus. Filtered and submitted in toto within a single cassette. /abhijit MICROSCOPIC Sections reveal cytologically bland, pseudostratified, proliferative, mitotically active epithelium having a slightly increased [id number] ratio. The glands show shallow budding focally, but overall are tubular, narrow caliber, within abundant stroma. PRE OPERATIVE DIAGNOSIS Menorrhagia REVIEW CODE CODE: I ----- ROMINA Rosales MD 06/23/12 [id number] ----- 46 NEGATIVE FOR TILA SPECIES Testing Performed by: [facility] [place] [address] 47 POSITIVE FOR GARDNERELLA VAGINALIS 48 Organism 1 ! GARDNERELLA VAGINALIS QUANTITY ! MANY 49 GRAM STAIN ! GRAM STAIN SUSPICIOUS FOR BACTERIAL VAGINOSIS ! MANY GRAM VARIABLE COCCOBACILLI ! VERY FEW GR POS. BACILLI SUGGESTIVE OF LACTOBACILLUS ! SP. ! FEW GRAM NEGATIVE BACILLI 50 NEGATIVE FOR TRICHOMONAS VAGINALIS 51 NEGATIVE FOR TILA SPECIES Testing Performed by: [place] [address] 52 POSITIVE FOR GARDNERELLA VAGINALIS 53 GENITAL ZOFIA 54 GRAM STAIN ! GRAM STAIN SUSPICIOUS FOR BACTERIAL VAGINOSIS ! MODERATE GRAM VARIABLE COCCOBACILLI 55 NEGATIVE FOR TRICHOMONAS VAGINALIS 56 NEGATIVE FOR TILA SPECIES Testing Performed by: [place] [address] 57 POSITIVE FOR GARDNERELLA VAGINALIS 58 Organism 1 ! ESCHERICHIA COLI QUANTITY ! MANY ESCHERICHIA COLI Target Route Dose M.I.C. RX AB COST ------ ----- -------- ------ -- ------ TRIMETHOPRIM/SULFAMETHOXAZOLE <=20 S AMPICILLIN <=2 S CEFAZOLIN <=4 S AMPICILLIN/SULBACTAM <=2 S CIPROFLOXACIN <=0.25 S CEFTAZIDIME <=1 S CEFTRIAXONE <=1 S CEFEPIME <=1 S LEVOFLOXACIN <=0.12 S IMIPENEM <=1 S GENTAMICIN <=1 S TOBRAMYCIN <=1 S CEFOXITIN <=4 S 59 GRAM STAIN ! GRAM STAIN INDETERMINANT FOR BACTERIAL VAGINOSIS ! VERY FEW GR POS. BACILLI SUGGESTIVE OF LACTOBACILLUS ! SP. ! FEW GRAM NEGATIVE COCCOBACILLI ! FEW GRAM NEGATIVE BACILLI 60 NEGATIVE FOR TRICHOMONAS VAGINALIS 61 NEGATIVE FOR TILA SPECIES Testing Performed by: [place] [address] 62 POSITIVE FOR GARDNERELLA VAGINALIS 63 NEGATIVE FOR TRICHOMONAS VAGINALIS 64 Result confirmed by repeat analysis. NORMALLY MENSTRUATING FEMALES: Follicular Phase:...............39-189 pg/mL Mid-Cycle Peak:.................94-508 pg/ mL Luteal Phase:...................48-309 pg/mL POSTMENOPAUSAL FEMALE:..............0-41 pg/mL 65 NORMALLY MENSTRUATING FEMALES: Follicular Phase:...............4-13 mIU/mL Mid-Cycle Peak:.................5-22 mIU/mL Luteal Phase:...................2 -13 mIU/mL Postmenopausal Female:........20-138 mIU/mL 66 Note: Persistent reduction for 3 months or more in an eGFR <60 mL/min/1.73 m2 defines CKD. Patients with eGFR values >/=60 mL/min/1.73 m2 may also have CKD if evidence of persistent proteinuria is present. The original MDRD equation for estimated GFR is not valid for patients less than 18 years of age. Additional information may be found at [email or web address]. 67 NORMALLY MENSTRUATING FEMALES: Follicular Phase.............1-18 mIU/mL Mid -Cycle Peak.............24-105 mIU/mL Luteal Phase...............0.4-20 mIU/mL Postmenopausal .............15-62 mIU/mL 68 QUERY: @[facility] Pat ID: QUERY: @[facility] Req #: 69 COLONY COUNT ! >100,000 CFU/ml Organism 1 ! ESCHERICHIA COLI QUANTITY ! MANY ESCHERICHIA COLI Target Route Dose M.I.C. RX AB COST ------ ----- -------- ------ -- ------ NITROFURANTOIN 32 S TRIMETHOPRIM/SULFAMETHOXAZOLE < =20 S AMPICILLIN <=2 S CEFAZOLIN <=4 S AMPICILLIN/SULBACTAM <=2 S CIPROFLOXACIN <= 0.25 S CEFTAZIDIME <=1 S CEFTRIAXONE <=1 S CEFEPIME <=1 S LEVOFLOXACIN <=0.12 S IMIPENEM <=1 S GENTAMICIN <=1 S TOBRAMYCIN <=1 S CEFOXITIN <=4 S 70 NEGATIVE FOR TILA SPECIES Testing Performed by: [facility] [place] [address] 71 Cytology Laboratory [address] [place] [address], [address] [place] [id number] CYTOLOGY REPORT Name: Sheree Wick : 1960 (Age: 49) Sex: F Location: [facility] Soc. Sec. #: [id number] Date Collected: 04/19/2010 Billing #: [id number] Date Received: 04/19/2010 Requisition # [id number] Alternate #: MR#[id number] Physician(s): KARISHMA MILES Source of Specimen: ENDOCERVICAL/ECTOCERVICAL THIN PREP Clinical Information: Date of Last Menstrual Period: 03/29/10 Menstrual History: Regular Specimen Adequacy: SATISFACTORY FOR EVALUATION. ADEQUATE ENDOCERVICAL/TRANSFORMATION ZONE. General Categorization: NEGATIVE FOR INTRAEPITHELIAL LESION OR MALIGNANCY. mas Electronic Signature RANI Da Silva (ASCP) Reported: 04/23/2010 Cytology Outreach [facility] ICD-9 Code(s) V72.31 72 NEGATIVE FOR GARDNERELLA VAGINALIS 73 NEGATIVE FOR TRICHOMONAS VAGINALIS 74 NEGATIVE FOR TILA SPECIES Testing Performed by: [facility] [place] [address] 75 COLONY COUNT ! 10,000 - 20,000 CFU/ml Organism 1 ! MIXED URETHRAL ZOFIA 76 POSITIVE FOR GARDNERELLA VAGINALIS 77 NEGATIVE FOR TRICHOMONAS VAGINALIS 78 FASTING [id number] [place] [address], [address] Fax [place] [id number] CYTOLOGY REPORT Name: Sheree Wick Accession # : [id number] : 1960 (Age: 48) Sex: F Location: [facility] Soc. Sec. #: [id number] Date Collected: 04/07/2009 Billing #: [id number] Date Received: 04/07/2009 Requisition # [id number] Alternate #: MR#[id number] Physician(s): KARISHMA MILES Source of Specimen: ENDOCERVICAL/ECTOCERVICAL THIN PREP Clinical Information: Date of Last Menstrual Period: 04/02/09 Menstrual History:Regular Specimen Adequacy: SATISFACTORY FOR EVALUATION. ADEQUATE ENDOCERVICAL/TRANSFORMATION ZONE. General Categorization: NEGATIVE FOR INTRAEPITHELIAL LESION OR MALIGNANCY. kf Electronic Signature RANI Cantu (ASCP) Reported: 04/11/2009 Cytology Outreach [facility] ICD-9 Code(s) V72.31 80 Note: Persistent reduction for 3 months or more in an eGFR <60 mL/min/1.73 m2 defines CKD. Patients with eGFR values >/=60 mL/min/1.73 m2 may also have CKD if evidence of persistent proteinuria is present. The original MDRD equation for estimated GFR is not valid for patients less than 18 years of age. Additional information may be found at [email or web address]. 81 Specimen: [id number] - TESTS: C7, CPK, TROP CHECKED + CALLED GERA AT 1307 06/27/08 by LAB.KLS TEST: C7 QUERY: IS THE PATIENT FASTING? U QUERY: CARD 1 =GLU, BUN, CRE, NA, K, CL, CO2, CALCIUM + GAP TEST: CPK TEST: TROP 82 06/27/08 LAB.DWM NEEDS 83 Note: Persistent reduction for 3 months or more in an eGFR <60 mL/min/1.73 m2 defines CKD. Patients with eGFR values >/=60 mL/min/1.73 m2 may also have CKD if evidence of persistent proteinuria is present. The original MDRD equation for estimated GFR is not valid for patients less than 18 years of age. Additional information may be found at [email or web address]. 84 0 - 0.6 NG/ML: NO EVIDENCE OF MYOCARDIAL INJURY 0.7 - 1.5 NG/ML: MILD ELEVATION, SUGGESTING POSSIBLE MYOCARDIAL INJURY > 1.5 NG/ML: CONSISTENT WITH MYOCARDIAL INJURY 85 Specimen: [id number] - TEST: TROP COMMENTS TO CLINICAL NURSE: COPY TO DR. SMITH 7 SPECIMEN COMMENTS: REPEAT DRAW PER M.D. CHECKED + CALLED NINA AT 1437 by LAB.KLS TEST: TROP 86 0 - 0.6 NG/ML: NO EVIDENCE OF MYOCARDIAL INJURY 0.7 - 1.5 NG/ML: MILD ELEVATION, SUGGESTING POSSIBLE MYOCARDIAL INJURY > 1.5 NG/ML: CONSISTENT WITH MYOCARDIAL INJURY 87 Cytology [id number] [facility], [address] [place] [address] CYTOLOGY REPORT Name: Sheree WickPaco Accession # : [id number] : 1960 (Age: 47) Sex: F Location: [facility] Soc. Sec. #: [id number] Date Collected: 04/06/2008 Billing #: [id number] Date Received: 04/07/2008 Alternate #: MR#[id number] Physician(s): KARISHMA MILES Source of Specimen: ENDOCERVICAL/ECTOCERVICAL THIN PREP Clinical Information : Date of Last Menstrual Period: 03/25/08 Menstrual History:Regular Specimen Adequacy: SATISFACTORY FOR EVALUATION. ADEQUATE ENDOCERVICAL/TRANSFORMATION ZONE. General Categorization: NEGATIVE FOR INTRAEPITHELIAL LESION OR MALIGNANCY. rosario Electronic Signature RANI Ledesma (ASCP) Reported: 04/15/2008 Cytology Outreach [facility] ICD-9 Code(s) V72.31 88 NORMAL THROAT ZOFIA 89 Cytology [id number], [address] [email or web address], [employer] [address] CYTOLOGY REPORT Name: Sheree Wick Accession # : [id number] : 1960 (Age: 46) Sex: F Location: [facility] Soc. Sec. #: [id number] Date Collected: 03/24/2007 Billing #: [id number] Date Received: 03/24/2007 Alternate #: MR#[id number] Physician(s): KARISHMA MILES Source of Specimen: ENDOCERVICAL/ECTOCERVICAL THIN PREP Clinical Information : Date of Last Menstrual Period: 03/06/07 Menstrual History:Irregular Specimen Adequacy: SATISFACTORY FOR EVALUATION. ADEQUATE ENDOCERVICAL/TRANSFORMATION ZONE. General Categorization: NEGATIVE FOR INTRAEPITHELIAL LESION OR MALIGNANCY. Descriptive Evaluation: REACTIVE CELLULAR CHANGES ASSOCIATED WITH INFLAMMATION. SHIFT IN ZOFIA SUGGESTIVE OF BACTERIAL VAGINOSIS cf Electronic Signature Soren Alberto MD Reported: 03/30/2007 Also seen by: RANI Suresh (ASCP) Cytology Outreach [facility] ICD-9 Code(s) V72.31 A: 616.9 616.10 90 Special Testing [id number] [place] [address] GC / CHLAMYDIA REPORT Name: Sheree Wick : 1960 (Age: 46) Sex: F Location: [facility] Soc. Sec. #: [id number] Date Collected: 03/24/2007 Billing #: [id number] Date Received: 03/24/2007 Requisition # [id number] Alternate #: MR#[id number] Physician (s): KARISHMA MILES Source of Specimen: ThinPrep Results: Neisseria gonorrhoeaeNEGATIVE Chlamydia trachomatisNEGATIVE Comment: This analysis was performed using second generation nucleic acid amplification testing (NAAT). Reported: 03/26/2007 Electronic Signature wxs Nicolette Skelton [place]([facility]) ICD- 9 Codes: A: V72.31 91 COLONY COUNT ! 30,000-40,000 CFU/ml Organism 1 ! ESCHERICHIA COLI QUANTITY ! MODERATE ESCHERICHIA COLI Target Route Dose M.I.C. RX AB COST ------ ----- -------- ------ -- ------ NITROFURANTOIN BLOOD PO 50 mg <=32 S 0.42 TRIMETHOPRIM/SULFAMETHOXAZOLE BLOOD PO DS <=10 S 0.39 AMPICILLIN BLOOD PO 250 mg 2 S 0.09 IV 1.0 gm S 1.27 IV 2.0 gm S 1.42 CEFAZOLIN BLOOD IV 500 mg <=8 S 0.90 IV 1.0 gm S 3.28 AMPICILLIN/SULBACTAM BLOOD IV 1.5 gm <=4 S 6.76 IV 3.0 gm S 12.42 CIPROFLOXACIN <=0.5 S PIPERACILLIN/TAZOBACTAM BLOOD IV 3.375 gm <=8 S 14.10 CEFTAZIDIME BLOOD IV 1.0 gm <=8 S 7.18 IM 1.0 gm S 6.46 CEFTRIAXONE BLOOD IV 1.0 gm <=8 S 22.32 IV 2.0 gm S 9.00 LEVOFLOXACIN BLOOD PO 250 mg <=1 S 6.97 PO 500 mg S 8.37 IV 500 mg S 16.21 IMIPENEM BLOOD IV 500 mg <=4 S 24.15 GENTAMICIN BLOOD IV 80 mg <=0.5 S 2.63 TOBRAMYCIN BLOOD IV 80 mg <=0.5 S 1.56 CEFUROXIME <=4 S 92 COLONY COUNT ! >100,000 CFU/ml Organism 1 ! ESCHERICHIA COLI QUANTITY ! MANY ESCHERICHIA COLI Target Route Dose M.I.C. RX AB COST ------ ----- -------- ------ -- ------ NITROFURANTOIN BLOOD PO 50 mg <=32 S 0.42 TRIMETHOPRIM/SULFAMETHOXAZOLE BLOOD PO DS <=10 S 0.39 AMPICILLIN BLOOD PO 250 mg 1 S 0.09 IV 1.0 gm S 1.27 IV 2.0 gm S 1.42 CEFAZOLIN BLOOD IV 500 mg <=8 S 0.90 IV 1.0 gm S 3.28 AMPICILLIN/SULBACTAM BLOOD IV 1.5 gm <=4 S 6.76 IV 3.0 gm S 12.42 CIPROFLOXACIN <=0.5 S PIPERACILLIN/TAZOBACTAM BLOOD IV 3.375 gm <=8 S 14.10 CEFTAZIDIME BLOOD IV 1.0 gm <=8 S 7.18 IM 1.0 gm S 6.46 CEFTRIAXONE BLOOD IV 1.0 gm <=8 S 22.32 IV 2.0 gm S 9.00 LEVOFLOXACIN BLOOD PO 250 mg <=1 S 6.97 PO 500 mg S 8.37 IV 500 mg S 16.21 IMIPENEM BLOOD IV 500 mg <=4 S 24.15 GENTAMICIN BLOOD IV 80 mg 1 S 2.63 TOBRAMYCIN BLOOD IV 80 mg <=0.5 S 1.56 CEFUROXIME <=4 S 93 Cytology Laboratory [address] [place] [address], [address] [place] [address] CYTOLOGY REPORT Name: Sheree Wick : 1960 (Age: 45) Sex: F Location: [facility] Soc. Sec. #: [id number] Date Collected: 01/13/2006 Billing #: [id number] Date Received: 01/15/2006 Alternate #: MR#[id number] Physician(s): KARISHMA MILES Source of Specimen: ENDOCERVICAL/THIN PREP Clinical Information: Date of Last Menstrual Period: 01/06/06 Menstrual History: Regular Specimen Adequacy: SATISFACTORY FOR EVALUATION. ADEQUATE ENDOCERVICAL/TRANSFORMATION ZONE. General Categorization: NEGATIVE FOR INTRAEPITHELIAL LESION OR MALIGNANCY. dcl Electronic Signature Elaineblaine Gabriel, CT (ASCP) Reported: 01/17/2006 ICD-9 Code(s) V72.31 94 FASTING 95 Normal Range: Male: <4.98 Female: <4.45 Procedures Date CPT Code Description Status Comment 04/20/2018 05802 Remove Impact Cerumen Completed Irrigation/Lavage 12/22/2017 Mammogram Completed 12/15/2017 16848 Electrocardiogram Complete Completed 10/23/2017 25030 Measure Blood Oxygen Level Completed Single Determination 08/26/2017 50272 Measure Blood Oxygen Level Completed Single Determination 04/17/2017 12022 Echography Transvaginal Completed 03/10/2017 81937 Measure Blood Oxygen Level Completed Single Determination 12/09/2016 Mammogram Completed Document: 10/17/14 - Mammogram Result Document: 12/09/16 - Digital Mammography Screening 02/07/2015 00190 Measure Blood Oxygen Level Completed Single Determination 11/29/2014 93006 Remove Impacted Cerumen Completed Requiring Instrumentation 10/17/2014 Mammogram Completed 01/19/2009 Colonoscopy Completed Document: 01/19/09 - Colonoscopy Dr. Maya, F/U 7-10 years Encounters Type Date Location Provider CPT E/M Dx Office Visit 12/15/2017 2:00[place] [address] Z00.00 I10 E78.2 R94.6 F41.1 K21.9 M54.89 J30.9 G47.00 R94.31 R30.0 N76.0 Z12.31 Z68.26 Office Visit 10/23/2017 2:30p [facility] [place] [address] R05 Office Visit 08/26/2017 9:45a [place] [address] R05 J06.9 Office Visit 06/13/2017 3:00p [place] [address] I10 F41.1 K21.9 M54.89 E78.2 J30.9 G47.00 R94.6 Z68.29 Office Visit 04/21/2017 8:00a [facility] Ilana Nassar, [place] [address] N83.202 R39.15 M54.32 Office Visit 03/13/2017 1:45p [facility] [place] [address] R42 Office Visit 03/10/2017 4:00p [facility] Ilana Nassar, [place] [address] R05 R50.9 N83.202 R10.9 Office Visit 02/28/2017 2:45p [facility] Ilana Nassar, [place] [address] R30.0 Office Visit 12/09/2016 3:00p [facility] Ilana Nassar, [place] [address] Z01.419 I10 F41.1 K21.9 M54.89 M79.671 E78.2 J30.9 Z68.29 Office Visit 05/31/2016 3:00p [facility] [place] [address] I10 F41.1 R31.9 K21.9 M79.671 Z11.59 M54.89 Office Visit 11/30/2015 3:00p [facility] [place] [address] F41.1 R12 I10 M54.89 S86.001A M25.571 Office Visit 05/31/2015 3:00p [facility] [place] [address] I10 R12 Z68.30 N39.41 Office Visit 02/07/2015 10:15a [facility] [place] [address] 780.60 486 Office Visit 11/29/2014 11:45a [facility] [place] [address] 401.1 727.1 724.1 300.02 787.1 380.4 Plan of Care Future Appointment(s):06/29/2018 10:00 am - Ilana Nassar NP at [facility]04/20 - German Nassar MDH61.21 Impacted cerumen, RIGHT earFollow up:F/U as innabwibrN75.27 Body mass index (BMI) 27.0-27.9, adult
--- NOTE | 2018-05-11 14:04 | UC ---
Throat Pain/Nasal Chon HPI - HPI Summary HPI Summary: 57 year old female with 1 week history of nasal congestions, yellow nasal drainage, sinus pressure, mild sore throat, shortness of breath, and non- productive cough. Associated with intermittent vertigo when moving from lying to sitting position, fever 100.5 F, chills, and fatigue. Denies visual disturbances, facial droop, slurred or difficulty speaking, ear pain or drainage , chest pain, palpitations, abdominal pain, nausea, vomiting, numbness, tingling , or weakness in extremities. - History of Current Complaint Chief Complaint: UCRespiratory Stated Complaint: CHEST CONGESTION Time Seen by Provider: 05/11/18 14:00 Hx Obtained From: Patient ?: No Onset/Duration: Gradual Onset, Lasting Days - 7 Severity: Moderate Pain Intensity: 8 Cough: Nonproductive Associated Signs & Symptoms: Positive: Hoarseness, Sinus Discomfort, Nasal Discharge, Fever. Negative: Dysphagia, Wheezing, Vomiting, Rash - Allergies/Home Medications Allergies/Adverse Reactions: Allergies Allergy/AdvReac Type Severity Reaction Status Date / Time oxymetazoline Allergy Severe Tachycardia Verified 05/11/18 14:03 Sulfa (Sulfonamide Allergy Intermediate Hives Verified 05/11/18 14:03 Antibiotics) phenylephrine Allergy Unknown Verified 05/11/18 14:03 Reaction Details sulfamethoxazole Allergy Rash And Verified 05/11/18 14:03 Itching ADHESIVE TAPE Allergy Intermediate Rash And Uncoded 05/11/18 14:03 Itching polyester Allergy Intermediate Rash Uncoded 05/11/18 14:03 PMH/Surg Hx/FS Hx/Imm Hx Cardiovascular History: Cardiac Disease - medication induced tachycardia, Hypertension GI/ History: Gastroesophageal Reflux - Surgical History Surgical History: Yes Surgery Procedure, Year, and Place: LEFT METATERSAL REPAIR FOOT 2011 -. BUNIOECTOMY BILAT 2006,. C SECTION 1986. OBEY STRIPPING RIGHT LEG 1995. TUBAL LIGATION 1995. left foot hardward removal from bunionectomy, 2016 - [facility]. 2018-left ankle surgery after fall - Family History Family History: Noncontributory - Social History Occupation: Employed Full-time Lives: With Family Alcohol Use: None Alcohol Amount: 1 PER YEAR Substance Use Type: None Smoking Status (MU): Never Smoked Tobacco Review of Systems Constitutional: Fever, Chills, Fatigue Skin: Negative Eyes: Negative ENT: Sore Throat, Nasal Discharge, Sinus Congestion, Sinus Pain/Tenderness Respiratory: Shortness Of Breath, Cough Cardiovascular: Negative Gastrointestinal: Negative Genitourinary: Negative Neurological: Other - Vertigo Is Patient Immunocompromised?: No All Other Systems Reviewed And Are Negative: Yes Physical Exam Triage Information Reviewed: Yes Appearance: Well-Appearing, No Pain Distress, Well-Nourished Vital Signs: Initial Vital Signs Temp 97.9 F 05/11/18 13:50 Pulse 66 05/11/18 13:50 Resp 19 05/11/18 13:50 BP 130/79 05/11/18 13:50 Pulse Ox 100 05/11/18 13:50 Eyes: Positive: Conjunctiva Clear. Negative: Discharge ENT: Positive: Pharyngeal erythema - Mild with cobblestoning, Nasal congestion, Nasal drainage, TMs normal, Sinus tenderness, Uvula midline. Negative: Tonsillar swelling, Tonsillar exudate Neck: Positive: Supple, Nontender, No Lymphadenopathy Respiratory: Positive: No respiratory distress, Wheezing - Diffuse bilateral wheezing, Other: - bronchospastic non-productive cough. Negative: Crackles, Rhonchi Cardiovascular: Positive: RRR, No Murmur Neurological: Positive: Alert Skin Exam: Normal Re-Evaluation - Re-Evaluation First Eval Re-Evaluation Time: 14:55 Change: Improved Comment: Post nebulizer treatment patient reports improved breathing and reduction in cough. Her bilateral breath sounds were clear to auscultation. Throat Pain/Nasal Course/Dx - Course Course Of Treatment: 57 year old female with 1 week history of URI symptoms, vertigo, and non-productive cough. She was noted to have diffuse bilateral wheezing with a bronchospastic cough. She was given an albuterol nebulizer treatment. Post-treatment she reported improved breathing, reduction in cough, and bilateral breath sounds are clear. I will treat her with 5 day course of prednisone 40 mg for the RAD, provide her with an albuterol inhaler PRN, and cover her with azithromycin for the URI. She is to follow up with her PCP in 5 days if no improvement. Verbalizes understanding and agrees with POC. - Differential Dx/Diagnosis Differential Diagnosis/HQI/PQRI: Sinusitis, URI, Other - bronchitis, lower respiratory infection Provider Diagnoses: Acute URI, reactive airway disease not asthma, BPPV Discharge - Sign-Out/Discharge Documenting (check all that apply): Patient Departure All imaging exams completed and their final reports reviewed: No Studies - Discharge Plan Condition: Stable Disposition: HOME Prescriptions: Albuterol HFA INHALER* [Ventolin HFA Inhaler*] 2 puff INH Q4H PRN #1 mdi PRN Reason: Sob/Wheezing Azithromyxin PAUL (NF) [Z-Paul (Zithromax) 250 mg tabs #6] 2 tab PO .TODAY, THEN 1 DAILY #6 tab predniSONE [Prednisone 20 MG TAB] 40 mg PO DAILY #10 tablet Patient Education Materials: Upper Respiratory Infection (ED), Reactive Airways Disease (ED) Forms: *Work Release Referrals: Stella Boston [Primary Care Provider] - 5 Days (If no improvement.) Additional Instructions: Your symptoms appear to be an upper respiratory infection that has caused a condition called reactive airway disease which results in inflammation of the airway that can cause symptoms such as shortness of breath, coughing fits, and wheezing. Start taking azithromycin 2 tabs today then 1 tab a day for next 4 days. Be sure to take the entire prescription even if your symptoms improve. Take prednisone 2 tabs daily for 5 days to help reduce the inflammation in your airway. Use the albuterol inhaler 2 puffs every 4-6 hours as needed for shortness or breath, wheezing, or coughing fits. I would recommend using a saline rinse kit such as Netti Pot or NeilMed twice daily to help thin nasal secretions and promote drainage. You may take acetaminophen (Tylenol) or ibuprofen (Advil, Motrin) according to directions as needed for aches, pain, or fever. Follow up with your primary care provider in 5 days if no improvement in symptoms. Seek immediate medical attention in the emergency room if you have chest pain, feel like your heart is racing or skipping beats, become weak or dizzy, worsening shortness of breath, or any worsening of symptoms. - Billing Disposition and Condition Condition: STABLE Disposition: Home
[2018-05-11] MEDS ORDERED: Albuterol 2.5 MG/3 ML NEB.SOL* (0.083%) INH ONE (14:09)
[2018-05-11 15:11] VITALS: BP 128/83
== END 2018-05-11 15:11 | disposition home or self-care (01) ==
LOC: UCCORT 13:38
DX: J06.9 Acute upper respiratory infection, unspecified (principal); J45.909 Unspecified asthma, uncomplicated; H81.10 Benign paroxysmal vertigo, unspecified ear; Z88.8 Allergy status to other drugs, medicaments and biological substances; Z88.1 Allergy status to other antibiotic agents
CPT/HCPCS: 99212; G0463

== ENCOUNTER 2019-05-21 17:12 | Emergency (ER) | payer BC ==
[2019-05-21 17:47] VITALS: BP 135/74
--- NOTE | 2019-05-21 17:48 | UC ---
Respiratory Complaint HPI - HPI Summary HPI Summary: 58-year-old female who had cold symptoms several weeks ago which totally resolved after 2 weeks. Then 10 days ago she started having cold symptoms again with head congestion and cough. She is a nonsmoker. - History of Current Complaint Chief Complaint: UCRespiratory Stated Complaint: CHEST CONGESTION, COUGH Time Seen by Provider: 05/21/19 17:38 Hx Obtained From: Patient ?: No Onset/Duration: Gradual Onset Timing: Constant Severity Initially: Mild Severity Currently: Moderate Pain Intensity: 6 Character: Cough: Productive Alleviating Factors: Nothing Associated Signs And Symptoms: Positive: Wheezing, URI, Nasal Congestion, Sinus Discomfort - Allergies/Home Medications Allergies/Adverse Reactions: Allergies Allergy/AdvReac Type Severity Reaction Status Date / Time oxymetazoline Allergy Severe Tachycardia Verified 05/21/19 17:44 Sulfa (Sulfonamide Allergy Intermediate Hives Verified 05/21/19 17:44 Antibiotics) phenylephrine Allergy Unknown Verified 05/21/19 17:44 Reaction Details sulfamethoxazole Allergy Rash And Verified 05/21/19 17:44 Itching ADHESIVE TAPE Allergy Intermediate Rash And Uncoded 05/21/19 17:44 Itching polyester Allergy Intermediate Rash Uncoded 05/21/19 17:44 PMH/Surg Hx/FS Hx/Imm Hx Previously Healthy: Yes Cardiovascular History: Hypertension - Surgical History Surgical History: Yes Surgery Procedure, Year, and Place: LEFT METATERSAL REPAIR FOOT 2011 -. BUNIOECTOMY BILAT 2005,. C SECTION 1986. OBEY STRIPPING RIGHT LEG 1995. TUBAL LIGATION 1995. left foot hardward removal from bunionectomy, 2016 - [facility] [place]. 2018-left ankle surgery after fall - Family History Known Family History: Positive: Non-Contributory Family History: Noncontributory - Social History Alcohol Use: Rare Alcohol Amount: 1 PER YEAR Substance Use Type: None Smoking Status (MU): Never Smoked Tobacco Review of Systems All Other Systems Reviewed And Are Negative: Yes ENT: Positive: Nasal Discharge, Sinus Congestion, Sinus Pain/Tenderness Respiratory: Positive: Cough, Other - Wheezing Is Patient Immunocompromised?: No Physical Exam Triage Information Reviewed: Yes Appearance: Well-Appearing, No Pain Distress, Well-Nourished Vital Signs: Initial Vital Signs Temp 99.0 F 05/21/19 17:41 Pulse 69 05/21/19 17:41 Resp 20 05/21/19 17:41 BP 135/74 05/21/19 17:41 Pulse Ox 98 05/21/19 17:41 Vital Signs Reviewed: Yes Eyes: Positive: Conjunctiva Clear ENT: Positive: Pharynx normal, Nasal congestion, Nasal drainage - Clear nasal coryza, TMs normal, Uvula midline, Other - Sinuses nontender Neck: Positive: Supple, Nontender, No Lymphadenopathy Respiratory: Positive: No respiratory distress, No accessory muscle use, Wheezing - Tight cough with expiratory wheezing. Mild wheezing throughout lung boland. Scattered rhonchi. No distress. Cardiovascular: Positive: RRR, No Murmur, Pulses Normal, Brisk Capillary Refill Musculoskeletal Exam: Normal Neurological Exam: Normal Psychological Exam: Normal Skin Exam: Normal Respiratory Course/Dx - Course Course Of Treatment: Chest x-ray: Possible LLL infiltrate The patient felt mildly improved following the DuoNeb treatment. She was given prednisone 40 mg by mouth here and to continue prednisone taper prescription. She was given doxycycline 100 mg's by mouth twice a day 10 days, albuterol inhaler 2 puffs every 4-6 hours as needed for tight cough and wheezing with a spacer given here. She also requested benzonatate caplets and a prescription for 100 mg by mouth 3 times a day when necessary for cough was also given. She is to go to the emergency room for any worsening symptoms, shortness of breath or chest pain. She is to follow-up with her primary care provider if no improvement by Friday or Friday. Patient is in agreement to this plan of action - Differential Dx/Diagnosis Provider Diagnosis: Bronchitis Discharge ED - Sign-Out/Discharge Documenting (check all that apply): Patient Departure All imaging exams completed and their final reports reviewed: No - Discharge Plan Condition: Fair Disposition: HOME Prescriptions: Albuterol HFA INHALER* [Ventolin HFA Inhaler*] 2 puff INH Q4H PRN 5 Days #1 mdi PRN Reason: Wheezing Benzonatate CAP* [Tessalon 100 MG CAP*] 100 mg PO TID PRN #21 cap PRN Reason: Cough DOXYcycline CAP(*) [DOXYcycline 100MG CAP(*)] 100 mg PO BID 10 Days #20 cap predniSONE TAB* [Deltasone 10 MG TAB*] 10 mg PO DAILY 11 Days #26 tab Patient Education Materials: Acute Bronchitis (ED) Referrals: Digiovanna,Stella [Primary Care Provider] - Additional Instructions: Increase fluids, take the prednisone with food but start the prednisone tomorrow. No dairy products, antacids or multivitamins or any vitamin supplements 2 hours before you take the doxycycline and 2 hours after you take it but take it with food. Definite follow-up with your primary care provider on Friday or Friday if no improvement. If you develop worsening symptoms over the weekend with difficulty breathing, shortness of breath or chest pain your to go to the emergency room. - Billing Disposition and Condition Condition: FAIR Disposition: Home
[2019-05-21] MEDS ORDERED: predniSONE TAB* 20 MG PO ONE (17:52)
[2019-05-21] MEDS ORDERED: Albuterol/Ipratropium NEB.SOL* Albuterol 2.5 MG/Ipratropium 0.5 MG 3 ML INH ONE (17:52)
--- NOTE | 2019-05-22 09:25 | UC ---
- Progress Note Progress Note: Patient Name: RONI WICK Medical Record#: [id number] Ordering Physician: Dorene Jacome NP Acct.#: [id number] : 1960 Age: 58 Sex: F Location: [facility] Exam Date: 05/21/191750 ADM Status: DEP ER Order Information: CHEST PA & LAT 2 VWS Accession Number: [id number] CPT: 25856 Indication: Cough, wheezing. 2 views of the chest including dual energy PA views demonstrate no mediastinal shift. Heart is of normal size and configuration. Lung boland show no pleural fluid, pneumonia or pneumothorax. IMPRESSION: No active cardiopulmonary disease is noted. R0 Preliminary Imaging Read R0 <Electronically signed by Payton Stapleton MD in OV> 05/22/19848 Dictated By: Payton Stapleton MD Dictated Date/Time: 05/22/19839 Transcribed Date/Time: 05/22/19839 Copy to: CC:Dorene Jacome CARPET SEWING MACHINE OPERATOR; Stella Boston NP; Ruy Malhotra MD Imaging - [facility] Imaging - [facility] [address] [place] [address] ph ([phone]) ph ([phone]) ph ([phone]) This report is only to be considered final once signed by the Provider(s) as displayed in the "<Electronically Signed by >" field (s). Absence of a signature indicates the report is in a draft status and still needs to be finalized. In the event this document was created by someone other than the signing Provider, the individual initiating the document will be listed in the "Entered by:" or "Dictated by:" boland. 1 of 1 Course/Dx - Diagnoses Provider Diagnoses: Bronchitis Discharge ED - Sign-Out/Discharge Documenting (check all that apply): Post-Discharge Follow Up All imaging exams completed and their final reports reviewed: Yes - Discharge Plan Condition: Fair Disposition: HOME Prescriptions: Albuterol HFA INHALER* [Ventolin HFA Inhaler*] 2 puff INH Q4H PRN 5 Days #1 mdi PRN Reason: Wheezing Benzonatate CAP* [Tessalon 100 MG CAP*] 100 mg PO TID PRN #21 cap PRN Reason: Cough DOXYcycline CAP(*) [DOXYcycline 100MG CAP(*)] 100 mg PO BID 10 Days #20 cap predniSONE TAB* [Deltasone 10 MG TAB*] 10 mg PO DAILY 11 Days #26 tab Patient Education Materials: Acute Bronchitis (ED) Referrals: Stella Boston [Primary Care Provider] - Additional Instructions: Increase fluids, take the prednisone with food but start the prednisone tomorrow. No dairy products, antacids or multivitamins or any vitamin supplements 2 hours before you take the doxycycline and 2 hours after you take it but take it with food. Definite follow-up with your primary care provider on Friday or Friday if no improvement. If you develop worsening symptoms over the weekend with difficulty breathing, shortness of breath or chest pain your to go to the emergency room. - Billing Disposition and Condition Condition: FAIR Disposition: Home
== END 2019-05-21 18:36 | disposition home or self-care (01) ==
LOC: UCCORT 17:12
DX: J40 Bronchitis, not specified as acute or chronic (principal); I10 Essential (primary) hypertension; Z88.8 Allergy status to other drugs, medicaments and biological substances; Z88.2 Allergy status to sulfonamides; Z91.09 Other allergy status, other than to drugs and biological substances
CPT/HCPCS: 71046; 99212; A9270-GY; G0463; J7512